=== PATIENT | male | born 1965 | race Caucasian/White ===

== ENCOUNTER 2016-09-21 18:54 | Emergency (ER) | payer OTHER ==
[2016-09-21 19:03] VITALS: RESP 20; TEMP 97.8
[2016-09-21] MEDS ORDERED: ORPHENADRINE 30 MG/ML 2 ML VIAL IM STA (19:16)
[2016-09-21] MEDS ORDERED: ONDANSETRON 4 MG ODT STARTER PACK 2 TAB BTL PO STA (19:16)
[2016-09-21] MEDS ORDERED: IPRATROPIUM-ALBUTEROL 3 ML NEB INHALATION STA (19:17)
[2016-09-21] MEDS ORDERED: ACETAMINOPHEN TAB 500 MG TAB PO STA (19:17)
--- NOTE | 2016-09-21 19:20 | ED ---
General Adult HPI - General Chief complaint: Back Pain/Injury Stated complaint: back pain, nausea, coughing Time Seen by Provider: 09/21/16 19:04 Source: patient, RN notes reviewed Mode of arrival: wheelchair Limitations: no limitations - History of Present Illness Initial comments: Patient is a 50-year-old male presenting to the emergency department with chief complaint of cough for 1 week, and 1 day of left-sided thoracic muscle spasm. Patient reports that is also felt somewhat nauseated today. He reports that he has not had any episodes of vomiting, and denies any abdominal pain. Patient reports is also had some sinus congestion earlier this week. He states that he is a smoker and has been diagnosed with COPD. Patient reports that over the past week has got cough is gone progressively worse and he is having productive green phlegm. He reports that he feels chills but denies any specific fever. He states he has not taken any Motrin or Tylenol for pain or fevers. He reports that his back pain is currently a 10 out of 10 and is worse with light pressure, he states is worse with movement as well. He denies any specific injury or trauma causes back pain. Patient denies any recent fever, chest pain , abdominal pain, nausea vomiting, numbness or tingling, dysuria or hematuria, constipation or diarrhea, headaches or visual changes, or any other current symptoms. - Related Data Home Medications Medication Instructions Recorded Confirmed Brimonidine Tartrate [Alphagan P 2 drops RIGHT EYE BID 09/21/16 09/21/16 0.2% Ophth Soln] Dorzolamide 2% [Trusopt 2%] 2 drops RIGHT EYE BID 09/21/16 09/21/16 Ibuprofen [Motrin] 400 mg PO Q6HR PRN 09/21/16 09/21/16 Lisinopril [Prinivil] 10 mg PO DAILY 09/21/16 09/21/16 Omeprazole 20 mg PO DAILY 09/21/16 09/21/16 Timolol 0.5% Ophth Soln [Timoptic 2 drop RIGHT EYE BID 09/21/16 09/21/16 0.5% Ophth Soln] Triamcinolone 0.1% Cream [Kenalog] 1 applic TOPICAL BID 09/21/16 09/21/16 hydrOXYzine HCL [Atarax] 10 mg PO DAILY PRN 09/21/16 09/21/16 Previous Rx's Medication Instructions Recorded Albuterol Inhaler [Ventolin Hfa 1 - 2 puff INHALATION Q6HR PRN #1 09/21/16 Inhaler] inhaler Azithromycin [Zithromax] 0 mg PO DIRECTED #6 tab 09/21/16 Cyclobenzaprine [Flexeril] 10 mg PO TID #15 tab 09/21/16 predniSONE 50 mg PO DAILY #5 tab 09/21/16 Allergies Allergy/AdvReac Type Severity Reaction Status Date / Time No Known Allergies Allergy Verified 09/21/16 19:27 Review of Systems ROS Statement: Those systems with pertinent positive or pertinent negative responses have been documented in the HPI. ROS Other: All systems not noted in ROS Statement are negative. Past Medical History Past Medical History: GERD/Reflux, Hypertension Additional Past Medical History / Comment(s): cataracts History of Any Multi-Drug Resistant Organisms: None Reported Past Surgical History: Orthopedic Surgery Additional Past Surgical History / Comment(s): cataract removal, rotator cuff Past Psychological History: No Psychological Hx Reported Smoking Status: Current every day smoker Past Alcohol Use History: Daily Past Drug Use History: None Reported General Exam - General Exam Comments Initial Comments: Patient is a pleasant 50-year-old male. He does appear to be in moderate discomfort due to back pain. Limitations: no limitations General appearance: alert, in no apparent distress Head exam: Present: atraumatic, normocephalic, normal inspection Eye exam: Present: normal appearance, PERRL, EOMI. Absent: scleral icterus, conjunctival injection, periorbital swelling ENT exam: Present: normal exam, normal oropharynx, mucous membranes moist, TM's normal bilaterally Neck exam: Present: normal inspection, full ROM. Absent: tenderness, meningismus, lymphadenopathy Respiratory exam: Present: wheezes (Mild bilateral wheezing), decreased breath sounds (Patient has decreased breath sounds bilaterally. ). Absent: normal lung sounds bilaterally, respiratory distress, rales, rhonchi, stridor Cardiovascular Exam: Present: regular rate, normal rhythm, normal heart sounds. Absent: systolic murmur, diastolic murmur, rubs, gallop, clicks GI/Abdominal exam: Present: soft, normal bowel sounds. Absent: distended, tenderness, guarding, rebound, rigid Extremities exam: Present: normal inspection, full ROM, normal capillary refill. Absent: tenderness, pedal edema, joint swelling, calf tenderness Back exam: Present: normal inspection Neurological exam: Present: alert, oriented X3, CN II-XII intact Psychiatric exam: Present: normal affect, normal mood Skin exam: Present: warm, dry, intact, normal color. Absent: rash Course Vital Signs 09/21/16 09/21/16 19:00 20:07 Temperature 97.8 F Pulse Rate 90 92 Respiratory 20 Rate Blood Pressure 185/86 O2 Sat by Pulse 97 Oximetry Medical Decision Making - Medical Decision Making Patient is a 70-year-old male who is a chronic smoker presenting the with chief complaint of 1 week of coughing and left-sided thoracic back spasm for the past day. Patient's blood pressure is elevated when he 185/86. Patient reports he is not taking his lisinopril this evening, patient reports he plans to take this as he gets home. He reports his back pain in the time 10. Patient states he is not taking any pain relievers including Motrin Tylenol today. Reports the cough is gone. Recently worsened suture green sputum. Patient's chest x-ray was reviewed. Chest x-ray shows no evidence of any acute cardiopulmonary process. Patient was given a DuoNeb treatment due to mild wheezing and decreased lung sounds. Patient reports mild improvement after the DuoNeb treatment. Thoracic spine x-ray was also reviewed and shows no acute process including spondylolisthesis or spondylolysis. The ribs are visualized and were unremarkable bilaterally. This was all read by Dr. godinez. Patient's influenza screen was also negative. Given the length of the cough and sputum start the patient on azithromycin, prednisone for the cough. Patient was also given an albuterol inhaler to use for cough and shortness of breath. Patient will also be discharged with a prescription for Flexeril for his back pain. I advised patient to do heat and ice over the back. I advised patient to follow- up with primary care provider in one to 2 days symptoms continue persist or to return to the [facility] if any alarming signs or symptoms occur. Return parameters discussed. Patient understands treatment plan will comply. - Lab Data Lab Results 09/21/16 Range/Units 19:27 Influenza Type A RNA Not Detected (Not Detectd) Influenza Type B (PCR) Not Detected (Not Detectd) - Radiology Data Radiology results: report reviewed Chest x-ray shows no evidence of any acute cardio primary process. No pneumonias or no pleural effusions, osseous structures are intact. Thoracic spine x-ray also shows no acute fracture dislocation in the thoracic spine. The ribs were visualized and showed no fractures. Vertebral disc height are preserved. All x-rays were reviewed by Dr. reis. Disposition Clinical Impression: Cough, Spasm of thoracic back muscle, Hypertension Disposition: HOME SELF-CARE Condition: Good Instructions: Muscle Spasm (ED), COPD (Chronic Obstructive Pulmonary Disease) ( ED), Acute Bronchitis (ED) Additional Instructions: Patient instructed to complete antibiotic and steroid prescriptions. Take muscle relaxers and apply heat to the back. Patient started take Motrin Tylenol for pain. Return to the [facility] if any alarming signs or symptoms occur. Patient started to follow-up with primary care provider within 1-2 days. Prescriptions: Albuterol Inhaler [Ventolin Hfa Inhaler] 1 - 2 puff INHALATION Q6HR PRN #1 inhaler PRN Reason: Shortness Of Breath Azithromycin [Zithromax] 0 mg PO DIRECTED #6 tab Cyclobenzaprine [Flexeril] 10 mg PO TID #15 tab predniSONE 50 mg PO DAILY #5 tab Referrals: Isidro Felipe MD [Primary Care Provider] - 1-2 days Time of Disposition: 20:13
--- NOTE | 2016-09-21 19:50 | XR ---
EXAMINATION TYPE: XR chest 2V DATE OF EXAM: 09/21/2016 7:41 PM COMPARISON: Prior chest x-ray December 03, 2012 HISTORY: Chest pain and cough since yesterday TECHNIQUE: Frontal and lateral views of the chest are obtained. FINDINGS: There is no focal air space opacity, pleural effusion, or pneumothorax seen. Underlying e mphysematous change is not excluded. The cardiac silhouette size is within normal limits. The osseo us structures are somewhat demineralized IMPRESSION: No acute cardiopulmonary process. No significant change from prior.
--- NOTE | 2016-09-21 19:51 | XR ---
EXAMINATION TYPE: XR thoracic spine complete DATE OF EXAM: 09/21/2016 7:41 PM CLINICAL HISTORY: Back pain. Cough. TECHNIQUE: Frontal, lateral, and swimmer's view of thoracic spine are obtained. COMPARISON: Chest x-ray December 03, 2012 FINDINGS: Thoracic spine show satisfactory alignment without evidence of acute fracture or dislocatio n. Vertebral body heights and disc space heights are preserved. No significant spurring is noted. Vi sualized ribs are unremarkable bilaterally. Visualized lungs are clear. IMPRESSION: No acute fracture or dislocation is seen in the thoracic spine.
[2016-09-21] MEDS ORDERED: cloNIDine HCL 0.1 MG TAB PO STA (20:35)
[2016-09-21 20:46] VITALS: BP 184/98; PULSE 80
== END 2016-09-21 20:47 | disposition home or self-care (01) ==
LOC: EC 18:54
DX: M62.830 Muscle spasm of back (principal); R05 Cough; I10 Essential (primary) hypertension; J44.9 Chronic obstructive pulmonary disease, unspecified; K21.9 Gastro-esophageal reflux disease without esophagitis; F17.200 Nicotine dependence, unspecified, uncomplicated; Z79.899 Other long term (current) drug therapy
CPT/HCPCS: 99284; 96372; 94640; 87502; 71020; 72072; J2360; S0119

== ENCOUNTER → 2016-10-21 | Outpatient (CLI) | payer OTHER ==
--- NOTE | 2016-10-21 08:34 | US ---
EXAMINATION TYPE: US abdomen complete DATE OF EXAM: 10/21/2016 8:15 AM COMPARISON: NONE CLINICAL HISTORY: R18.8 Ascites, R16.2 Hepatomegaly with splenomegaly. Patient on meds for HTN; smoke r; no distended abdomen noticed on US initial physical assessment EXAM MEASUREMENTS: Liver Length: 14.1 cm Gallbladder Wall: 0.1 cm CBD: 0.2 cm Spleen: 7.1 cm Right Kidney: 12.8 x 5..5 x 4.1 cm Left Kidney: 11.8 x 5.4 x 5.6 cm TECHNOLOGIST IMPRESSION: Pancreas: wnl Liver: wnl, size is wnl Gallbladder: wnl Evidence for sonographic Cruz's sign: no CBD: wnl Spleen: size is wnl, appearance is mildly coarse in texture Right Kidney: microcalcifications are noted scattered throughout Left Kidney: microcalcifications are noted scattered throughout; mid pole cortical cyst is noted = 1 .0 x 1.0 x 0.8cm Upper IVC: wnl Abd Aorta: intimal wall thickening is noted mid, distal, and into EMY vessels IMPRESSION: Multiple small nonobstructing renal calculi. Left renal cortical
[2016-10-21 08:47] LABS: Basophils % (A) 0 %; CH 34.6; CHCM 34.7; Eosinophils % (A) 0 %; HDW 2.16; HGB 13.2 gm/dL (13.0-17.5); Luc # (Auto) 0.19; Luc % (Auto) 3; Lymphocytes # (A) 1.3 k/uL (1.0-4.8); Lymphocytes % (A) 17 %; Mean Platelet Volume 6.2; Monocytes # (A) 0.6 k/uL (0-1.0); Monocytes % (A) 8 %; Neutrophils # (A) 5.5 k/uL (1.3-7.7); Neutrophils % (A) 73 %; RDW 13.5 % (11.5-15.5); WBC 7.6 k/uL (3.8-10.6); WBC (Perox) 8.02
[2016-10-21 08:53] LABS: INR 0.9 (<1.1); Prothrombin Time 9.5 sec (9.0-12.0)
[2016-10-21 09:19] LABS: ALT 34 U/L (21-72); AST 33 U/L (17-59); Alcohol <10 mg/dL; Alkaline Phosphatase 83 U/L (38-126); Anion Gap 12 mmol/L; Blood Urea Nitrogen 8 mg/dL (9-20); Calcium 10.1 mg/dL (8.4-10.2); Carbon Dioxide 28 mmol/L (22-30); Chloride 90 mmol/L (98-107); Cholesterol 218 mg/dL (<200); Creatine Kinase 63 U/L (55-170); Glucose 87 mg/dL (74-99); Magnesium 1.8 mg/dL (1.6-2.3); Non-African American GFR(MDRD) >60 (>60 ml/min/1.73 sqM); Phosphorous 4.1 mg/dL (2.5-4.5); Potassium 4.4 mmol/L (3.5-5.1); Sodium 130 mmol/L (137-145); Total Bilirubin 0.6 mg/dL (0.2-1.3); Total Protein 8.2 g/dL (6.3-8.2); Triglycerides 48 mg/dL (<150); Uric Acid 3.5 mg/dL (3.5-8.5)
[2016-10-21 10:06] LABS: Hepatitis C Virus IgG Index 0.04
[2016-10-21 10:25] LABS: Hepatitis C Virus IgG Ab Negative (Negative)
[2016-10-21 10:30] LABS: C Reactive Protein <5.0 mg/L (<10.0)
[2016-10-21 10:46] LABS: HDL Cholesterol 137 mg/dL (40-60)
[2016-10-21 12:23] LABS: Erythrocyte Sedimentation Rate 8 mm/hr (0-15)
[2016-10-21 13:18] LABS: Hemoglobin A1C 5.3 % (4.2-6.1)
== END | disposition home or self-care (01) ==
LOC: RADUSWWP 07:34
PROVIDERS: ATTEND Internal Medicine
DX: N20.0 Calculus of kidney (principal); D64.9 Anemia, unspecified; J44.9 Chronic obstructive pulmonary disease, unspecified; M10.9 Gout, unspecified; E78.5 Hyperlipidemia, unspecified; I10 Essential (primary) hypertension; K70.30 Alcoholic cirrhosis of liver without ascites
CPT/HCPCS: 76700; 80053; 80061; 80320; 82105; 82140; 82550; 83036; 83735; 84100; 84439; 84443; 84550; 85025; 85610; 85652; 86140; 86301; 86803

== ENCOUNTER → 2017-10-10 | Outpatient (CLI) | payer OTHER ==
[2017-10-10 08:56] LABS: Basophils % (A) 0 %; Eosinophils % (A) 0 %; Lymphocytes # (A) 1.2 k/uL (1.0-4.8); Lymphocytes % (A) 16 %; MCHC 34.2 g/dL (31.0-37.0); MCV 99.5 fL (80.0-100.0); Mean Platelet Volume 6.2; Monocytes # (A) 0.8 k/uL (0-1.0); Monocytes % (A) 11 %; Neutrophils # (A) 5.1 k/uL (1.3-7.7); Neutrophils % (A) 70 %; Platelet Count 372 k/uL (150-450); RBC 3.82 m/uL (4.30-5.90); RDW 12.9 % (11.5-15.5); WBC 7.4 k/uL (3.8-10.6)
[2017-10-10 10:10] LABS: ALT 25 U/L (21-72); AST 32 U/L (17-59); Albumin 4.6 g/dL (3.5-5.0); Alkaline Phosphatase 66 U/L (38-126); Anion Gap 10 mmol/L; Blood Urea Nitrogen 8 mg/dL (9-20); Calcium 10.1 mg/dL (8.4-10.2); Carbon Dioxide 28 mmol/L (22-30); Chloride 85 mmol/L (98-107); Cholesterol 192 mg/dL (<200); Glucose 88 mg/dL (74-99); HDL Cholesterol 90 mg/dL (40-60); LDL Cholesterol,Calculated 91 mg/dL (0-99); Potassium 5.3 mmol/L (3.5-5.1); Sodium 123 mmol/L (137-145); Total Bilirubin 0.5 mg/dL (0.2-1.3); Total Protein 7.8 g/dL (6.3-8.2); Triglycerides 55 mg/dL (<150)
[2017-10-10 10:37] LABS: Prostate Specific Antigen 0.44 ng/mL (0.00-4.00)
== END | disposition home or self-care (01) ==
LOC: LABWHC1 08:18
PROVIDERS: ATTEND Family Medicine
DX: I10 Essential (primary) hypertension (principal); Z13.21 Encounter for screening for nutritional disorder; Z12.5 Encounter for screening for malignant neoplasm of prostate
CPT/HCPCS: 36415; 80053; 80061; 82306; 84153; 84443; 85025

== ENCOUNTER → 2017-11-24 | Outpatient (CLI) | payer OTHER ==
--- NOTE | 2017-11-24 11:33 | XR ---
EXAMINATION TYPE: XR chest 2V DATE OF EXAM: 11/24/2017 COMPARISON: 09/21/2016 HISTORY: Shortness of breath and COPD TECHNIQUE: Frontal and lateral views of the chest are obtained. FINDINGS: There is no focal air space opacity, pleural effusion, or pneumothorax seen. Pulmonary hy perinflation and flattening of the diaphragms represents the patient's known underlying COPD. Hilar e nlargement is favored to represent underlying pulmonary artery hypertension in the setting of COPD. T he cardiac silhouette size is within normal limits. The osseous structures are intact. IMPRESSION: No acute cardiopulmonary process. Radiographic sequela city and findings favoring pulmon kendy arterial hypertension.
== END | disposition home or self-care (01) ==
LOC: RADXRMAIN 11:06
PROVIDERS: ATTEND Family Medicine
DX: E87.1 Hypo-osmolality and hyponatremia (principal)
CPT/HCPCS: 36415; 71046; 84295

== ENCOUNTER 2018-01-08 15:12 | Inpatient (IN) | payer OTHER ==
[2018-01-08] MEDS ORDERED: ONDANSETRON 4 MG/2 ML VIAL IVP STA (15:43)
[2018-01-08] MEDS ORDERED: LORazepam 2 MG/ML INJ IV STA (15:43)
[2018-01-08] MEDS ORDERED: SODIUM CHLORIDE 0.9% 1,000 ML IV STA ×2 (15:43→16:53)
[2018-01-08] MEDS ORDERED: KETOROLAC 30 MG/ML 1 ML VIAL IVP STA (15:44)
[2018-01-08] MEDS ORDERED: IPRATROPIUM-ALBUTEROL 3 ML NEB INHALATION STA (15:44)
[2018-01-08] MEDS ORDERED: methylPREDNISolone SOD SUCCI 125 MG/2 ML VIAL IV STA (15:44)
[2018-01-08 16:04] LABS: Basophils % (A) 0 %; Eosinophils # (A) 0.2 k/uL (0-0.7); Eosinophils % (A) 2 %; HCT 39.8 % (39.0-53.0); HGB 13.7 gm/dL (13.0-17.5); Lymphocytes # (A) 0.5 k/uL (1.0-4.8); Lymphocytes % (A) 6 %; MCH 34.2 pg (25.0-35.0); MCHC 34.5 g/dL (31.0-37.0); MCV 98.9 fL (80.0-100.0); Mean Platelet Volume 6.6; Monocytes # (A) 0.5 k/uL (0-1.0); Monocytes % (A) 6 %; Neutrophils # (A) 6.6 k/uL (1.3-7.7); Neutrophils % (A) 85 %; Platelet Count 250 k/uL (150-450); RBC 4.02 m/uL (4.30-5.90); RDW 12.3 % (11.5-15.5); WBC 7.8 k/uL (3.8-10.6)
--- NOTE | 2018-01-08 16:13 | XR ---
EXAMINATION TYPE: XR chest 2V DATE OF EXAM: 01/08/2018 COMPARISON: NONE HISTORY: Cough, congestion, and chest pain TECHNIQUE: Frontal and lateral views of the chest are obtained. FINDINGS: There is no focal air space opacity, pleural effusion, or pneumothorax seen. The cardiac silhouette size is within normal limits. The osseous structures are intact. Chronic deformity of th e right midclavicle is seen from prior fracture. Mild osseous demineralization is noted. IMPRESSION: No acute cardiopulmonary process.
[2018-01-08 16:14] LABS: ALT 50 U/L (21-72); AST 76 U/L (17-59); Albumin 4.2 g/dL (3.5-5.0); Alkaline Phosphatase 80 U/L (38-126); Anion Gap 10 mmol/L; Blood Urea Nitrogen 7 mg/dL (9-20); Calcium 9.3 mg/dL (8.4-10.2); Carbon Dioxide 25 mmol/L (22-30); Chloride 88 mmol/L (98-107); Glucose 118 mg/dL (74-99); Magnesium 1.5 mg/dL (1.6-2.3); Phosphorus 2.3 mg/dL (2.5-4.5); Potassium 3.6 mmol/L (3.5-5.1); Sodium 123 mmol/L (137-145); Total Bilirubin 0.5 mg/dL (0.2-1.3); Total Protein 7.1 g/dL (6.3-8.2)
[2018-01-08 16:18] LABS: Partial Thromboplastin Time 26.1 sec (22.0-30.0); Prothrombin Time 9.6 sec (9.0-12.0)
[2018-01-08 16:21] LABS: D-Dimer 1.36 mg/L FEU (<0.60)
[2018-01-08 16:41] LABS: Creatine Kinase 258 U/L (55-170)
[2018-01-08 16:49] LABS: Creatine Kinase MB 0.7 ng/mL (0.0-2.4)
[2018-01-08 16:54] LABS: Troponin I <0.012 ng/mL (0.000-0.034)
[2018-01-08] MEDS ORDERED: MAGNESIUM OXIDE 400 MG TAB PO STA (16:54)
[2018-01-08] MEDS ORDERED: RX INFO: IV CONTRAST WAS GIVEN 1 EACH MISC MISCELLANE PRN (17:39)
--- NOTE | 2018-01-08 18:35 | US ---
EXAMINATION TYPE: US venous doppler duplex LE BI DATE OF EXAM: 01/08/2018 5:39 PM COMPARISON: NONE CLINICAL HISTORY: Pain. SIDE PERFORMED: Bilateral TECHNIQUE: The lower extremity deep venous system is examined utilizing real time linear array sonog rosemary with graded compression, doppler sonography and color-flow sonography. VESSELS IMAGED: External Iliac Vein (EIV) Common Femoral Vein Deep Femoral Vein Greater Saphenous Vein * Femoral Vein Popliteal Vein Small Saphenous Vein * Proximal Calf Veins (* superficial vessels) Right Leg: Negative for DVT Left Leg: Negative for DVT IMPRESSION: Negative exam. No evidence of deep venous thrombosis in both legs.
--- NOTE | 2018-01-08 18:43 | ED ---
General Adult HPI - General Chief complaint: Shortness of Breath Stated complaint: KULDIP Time Seen by Provider: 01/08/18 15:28 Source: patient, RN notes reviewed, old records reviewed Mode of arrival: ambulatory Limitations: no limitations - History of Present Illness Initial comments: 52-year-old male the ER for evaluation. The patient resents for evaluation regarding weakness, decreased ability to walk, persistent nausea vomiting not feeling well. Patient has no recent travel history or sick contacts no chest pain or shortness of breath, takes no specific medications. Patient does admit to daily alcohol intake. Patient does with decreased appetite but mainly consistent and persistent nausea vomiting no pain - Related Data Home Medications Medication Instructions Recorded Confirmed Amoxicillin 500 mg PO TID 01/08/18 01/08/18 Cetirizine HCl [Zyrtec] 10 mg PO DAILY 01/08/18 01/08/18 Citalopram Hydrobromide 20 mg PO DAILY 01/08/18 01/08/18 [Citalopram HBr] Ergocalciferol [Vitamin D2] 50,000 unit PO Q30D 01/08/18 01/08/18 Ibuprofen [Motrin] 400 mg PO TID PRN 01/08/18 01/08/18 Latanoprost Ophth [Xalatan 0.005%] 1 drops RIGHT EYE HS 01/08/18 01/08/18 Losartan Potassium 50 mg PO DAILY 01/08/18 01/08/18 Melatonin 3 mg PO HS 01/08/18 01/08/18 Nicotine [Nicotrol] 1 puff INHALATION DIRECTED 01/08/18 01/08/18 Ranitidine HCl 150 mg PO BID 01/08/18 01/08/18 hydrOXYzine HCL 25 mg PO HS 01/08/18 01/08/18 Allergies Allergy/AdvReac Type Severity Reaction Status Date / Time No Known Allergies Allergy Verified 01/08/18 15:15 Review of Systems ROS Statement: Those systems with pertinent positive or pertinent negative responses have been documented in the HPI. ROS Other: All systems not noted in ROS Statement are negative. Past Medical History Past Medical History: GERD/Reflux, Hypertension Additional Past Medical History / Comment(s): cataracts History of Any Multi-Drug Resistant Organisms: None Reported Past Surgical History: Orthopedic Surgery Additional Past Surgical History / Comment(s): cataract removal, rotator cuff Past Psychological History: No Psychological Hx Reported Smoking Status: Current every day smoker Past Alcohol Use History: Daily Past Drug Use History: None Reported General Exam Limitations: no limitations General appearance: alert, in no apparent distress, lethargic Head exam: Present: atraumatic, normocephalic, normal inspection Eye exam: Present: normal appearance, PERRL, EOMI. Absent: scleral icterus, conjunctival injection, periorbital swelling ENT exam: Present: normal exam, mucous membranes moist Neck exam: Present: normal inspection. Absent: tenderness, meningismus, lymphadenopathy Respiratory exam: Present: normal lung sounds bilaterally. Absent: respiratory distress, wheezes, rales, rhonchi, stridor Cardiovascular Exam: Present: regular rate, normal rhythm, normal heart sounds. Absent: systolic murmur, diastolic murmur, rubs, gallop, clicks GI/Abdominal exam: Present: soft, normal bowel sounds. Absent: distended, tenderness, guarding, rebound, rigid Extremities exam: Present: normal inspection, full ROM, normal capillary refill. Absent: tenderness, pedal edema, joint swelling, calf tenderness Back exam: Present: normal inspection Neurological exam: Present: alert, oriented X3, CN II-XII intact Psychiatric exam: Present: normal affect, normal mood Skin exam: Present: warm, dry, intact, normal color. Absent: rash Course Vital Signs 01/08/18 01/08/18 01/08/18 15:14 16:08 17:27 Temperature 98.0 F Pulse Rate 112 H 98 78 Respiratory 20 20 16 Rate Blood Pressure 138/74 128/74 O2 Sat by Pulse 96 98 Oximetry 01/08/18 01/08/18 17:38 18:41 Temperature Pulse Rate 80 99 Respiratory 20 Rate Blood Pressure 118/65 O2 Sat by Pulse 96 Oximetry - Reevaluation(s) Reevaluation #1: Patient has multiple elevated lab values including d-dimer we will pertain ultrasound and CT of chest Patient is having improvement with IV hydration and symptom control EKG Findings - EKG Comments: EKG Findings:: Shows sinus tachycardia rate of 103, [place] 1:30, QRS 88, QTC 445 Medical Decision Making - Medical Decision Making 52 male the ER for evaluation, patient resents for nausea vomiting persistent, hyponatremia beer per fidelina, multiple left foot and about his. Patient will be admitted for pending DVTs, electrolyte replacement of and resuscitation - Lab Data Result diagrams: 01/08/18 15:55 01/08/18 15:55 Lab Results 01/08/18 01/08/18 01/08/18 Range/Units 15:55 15:55 15:55 WBC 7.8 (3.8-10.6) k/uL RBC 4.02 L (4.30-5.90) m/uL Hgb 13.7 (13.0-17.5) gm/dL Hct 39.8 (39.0-53.0) % MCV 98.9 (80.0-100.0) fL MCH 34.2 (25.0-35.0) pg MCHC 34.5 (31.0-37.0) g/dL RDW 12.3 (11.5-15.5) % Plt Count 250 (150-450) k/uL Neutrophils % 85 % Lymphocytes % 6 % Monocytes % 6 % Eosinophils % 2 % Basophils % 0 % Neutrophils # 6.6 (1.3-7.7) k/uL Lymphocytes # 0.5 L (1.0-4.8) k/uL Monocytes # 0.5 (0-1.0) k/uL Eosinophils # 0.2 (0-0.7) k/uL Basophils # 0.0 (0-0.2) k/uL PT (9.0-12.0) sec INR (<1.2) APTT (22.0-30.0) sec D-Dimer (<0.60) mg/L FEU Sodium 123 L (137-145) mmol/L Potassium 3.6 (3.5-5.1) mmol/L Chloride 88 L (98-107) mmol/L Carbon Dioxide 25 (22-30) mmol/L Anion Gap 10 mmol/L BUN 7 L (9-20) mg/dL Creatinine 0.73 (0.66-1.25) mg/dL Est GFR (CKD-EPI)AfAm >90 (>60 ml/min/1.73 sqM) Est GFR (CKD-EPI)NonAf >90 (>60 ml/min/1.73 sqM) Glucose 118 H (74-99) mg/dL Calcium 9.3 (8.4-10.2) mg/dL Phosphorus 2.3 L (2.5-4.5) mg/dL Magnesium 1.5 L (1.6-2.3) mg/dL Total Bilirubin 0.5 (0.2-1.3) mg/dL AST 76 H (17-59) U/L ALT 50 (21-72) U/L Alkaline Phosphatase 80 (38-126) U/L Total Creatine Kinase 258 H (55-170) U/L CK-MB (CK-2) 0.7 (0.0-2.4) ng/mL CK-MB (CK-2) Rel Index 0.3 Troponin I <0.012 (0.000-0.034) ng/mL NT-Pro-B Natriuret Pep pg/mL Total Protein 7.1 (6.3-8.2) g/dL Albumin 4.2 (3.5-5.0) g/dL 01/08/18 01/08/18 Range/Units 15:55 15:55 WBC (3.8-10.6) k/uL RBC (4.30-5.90) m/uL Hgb (13.0-17.5) gm/dL Hct (39.0-53.0) % MCV (80.0-100.0) fL MCH (25.0-35.0) pg MCHC (31.0-37.0) g/dL RDW (11.5-15.5) % Plt Count (150-450) k/uL Neutrophils % % Lymphocytes % % Monocytes % % Eosinophils % % Basophils % % Neutrophils # (1.3-7.7) k/uL Lymphocytes # (1.0-4.8) k/uL Monocytes # (0-1.0) k/uL Eosinophils # (0-0.7) k/uL Basophils # (0-0.2) k/uL PT 9.6 (9.0-12.0) sec INR 1.0 (<1.2) APTT 26.1 (22.0-30.0) sec D-Dimer 1.36 H (<0.60) mg/L FEU Sodium (137-145) mmol/L Potassium (3.5-5.1) mmol/L Chloride (98-107) mmol/L Carbon Dioxide (22-30) mmol/L Anion Gap mmol/L BUN (9-20) mg/dL Creatinine (0.66-1.25) mg/dL Est GFR (CKD-EPI)AfAm (>60 ml/min/1.73 sqM) Est GFR (CKD-EPI)NonAf (>60 ml/min/1.73 sqM) Glucose (74-99) mg/dL Calcium (8.4-10.2) mg/dL Phosphorus (2.5-4.5) mg/dL Magnesium (1.6-2.3) mg/dL Total Bilirubin (0.2-1.3) mg/dL AST (17-59) U/L ALT (21-72) U/L Alkaline Phosphatase (38-126) U/L Total Creatine Kinase (55-170) U/L CK-MB (CK-2) (0.0-2.4) ng/mL CK-MB (CK-2) Rel Index Troponin I (0.000-0.034) ng/mL NT-Pro-B Natriuret Pep 102 pg/mL Total Protein (6.3-8.2) g/dL Albumin (3.5-5.0) g/dL - Radiology Data Radiology results: report reviewed (Ultrasound bilateral lower extremities are negative, CT chest negative), image reviewed Disposition Clinical Impression: Hyponatremia, Malnutrition, Alcohol abuse, Alcohol withdrawal Disposition: ADMITTED IP TO THIS HOSP Condition: Fair Is patient prescribed a controlled substance at d/c from ED?: No
[2018-01-08] MEDS: MAGNESIUM SULFATE-D5W PMX 1 GM in DEXTROSE/WATER 1 100ML.BAG IVPB SCH ×2 (18:45→19:49)
--- NOTE | 2018-01-08 18:53 | CT ---
EXAMINATION TYPE: CT angio chest DATE OF EXAM: 01/08/2018 6:46 PM COMPARISON: NONE HISTORY: Chest pain. CT DLP: 154.9 mGycm Automated exposure control for dose reduction was used. CONTRAST: CTA scan of the thorax is performed with IV Contrast, patient injected with 69ml mL of Isovue 370, pu lmonary embolism protocol. There are 3-D post processed images.. FINDINGS: There is diffuse pulmonary emphysema. There is no evidence of a pulmonary mass. Thoracic aorta shows no evidence of aneurysm or dissection. There is no mediastinal adenopathy. There are no hilar masses. There are bilateral bronchial lymph nodes that measure up to 1.4 cm. I see no filling defects in the pulmonary arteries. There is no pleural effusion. There is minimal lemons bpleural reticular interstitial density in the right lower lobe. IMPRESSION: NO EVIDENCE OF PULMONARY EMBOLISM. EMPHYSEMA. MILD FIBROTIC CHANGES AT THE RIGHT LOWER LOBE SUBPLEURAL REGION. THERE ARE A FEW BILATERAL BRONCHIAL LYMPH NODES PROBABLY RELATED TO INFLAMMATORY DISEASE.
[2018-01-08] MEDS ORDERED: LORazepam 2 MG/ML INJ IV PRN ×3 (19:21)
[2018-01-08] MEDS ORDERED: SODIUM CHLORIDE 0.9% 1,000 ML IV ONE (19:21)
[2018-01-08] MEDS ORDERED: ONDANSETRON 4 MG/2 ML VIAL IVP PRN (19:21)
[2018-01-08] MEDS ORDERED: THIAMINE 100 MG/ML 2 ML VIAL IM STA (19:21)
[2018-01-08 21:42] VITALS: BMI 21.0
[2018-01-08] MEDS: THIAMINE 100 MG TAB PO SCH (22:03)
[2018-01-08] MEDS: hydrOXYzine HCL 25 MG TAB PO SCH (22:04)
[2018-01-08] MEDS: MELATONIN 3 MG TABLET PO SCH (22:04)
[2018-01-08] MEDS: LATANOPROST 0.005% OPHTH DROPS 2.5 ML BTL RIGHT EYE SCH (22:05)
[2018-01-09] MEDS: DIAZEPAM 5 MG/ML 2 ML INJ IVP SCH ×5 (01:18→22:00)
[2018-01-09] MEDS: PANTOPRAZOLE 40 MG/10 ML VIAL IVP SCH (07:53)
[2018-01-09] MEDS: CITALOPRAM HYDROBROMIDE 20 MG TAB PO SCH (07:53)
[2018-01-09] MEDS: LOSARTAN 50 MG TAB PO SCH (07:53)
[2018-01-09] MEDS: ENOXAPARIN 40 MG/0.4 ML SYRINGE SQ SCH (07:53)
[2018-01-09] MEDS: LORATADINE 10 MG TAB PO SCH (07:53)
[2018-01-09] MEDS ORDERED: FAMOTIDINE 20 MG TAB PO SCH (09:00)
[2018-01-09] MEDS: NICOTINE 21MG/24HR PATCH TRANSDERM SCH (11:12)
[2018-01-09] MEDS: THIAMINE 100 MG TAB PO SCH ×2 (11:53→15:14)
[2018-01-09] MEDS ORDERED: DIAZEPAM 5 MG/ML (10 ML MDV) IVP ONE (12:00)
[2018-01-09] MEDS ORDERED: RX INFO: IV CONTRAST WAS GIVEN 1 EACH MISC MISCELLANE PRN (12:54)
[2018-01-09 13:34] LABS: Anion Gap 10 mmol/L; Blood Urea Nitrogen 9 mg/dL (9-20); Calcium 8.9 mg/dL (8.4-10.2); Carbon Dioxide 20 mmol/L (22-30); Chloride 101 mmol/L (98-107); Glucose 100 mg/dL (74-99); Sodium 131 mmol/L (137-145)
[2018-01-09] MEDS: cefTRIAXone IN SWFI 1,000 MG/10 ML SYRINGE IVP SCH (14:05)
[2018-01-09] MEDS: SODIUM CHLORIDE 0.9% 1,000 ML IV SCH (15:14)
--- NOTE | 2018-01-09 15:18 | P.HPIM ---
History of Present Illness H&P Date: 01/09/18 Chief Complaint: Cough, diarrhea This is a 52-year-old male patient of Dr. Britton with a past medical history for gastroesophageal reflux disease, hypertension, alcohol abuse. Patient drinks a 6 pack per day for at least 35 years. His last alcohol intake was 3 days ago. He denies having withdrawal symptoms or seizure activity in the past He states he came into the hospital because of coughing he thought he had pneumonia. Patient started having vomiting and chest pain on Friday evening according to his mother. He denies any coffee ground color or blood in the emesis. He has also had diarrhea 2-3 times per day that is a watery consistency and abdominal ache. He came into [facility] emergency center for evaluation. He also had complaints of decreased ability to walk and generalized weakness. EKG was sinus tachycardia, sodium 123, chloride 88, potassium 3.6, creatinine 0.73, blood sugar 118. Troponin was negative. D-dimer was 1.36 and patient underwent a CTA of the chest that was negative for pulmonary embolism. Emphysema. Mild fibrotic changes at the right lower lobe. Pleural region. Few bilateral bronchial lymph nodes probably related to inflammatory disease. Ultrasound of the bilateral lower extremities negative for DVT. Patient was started on IV fluids, thiamine, Protonix and Zofran and admitted to the [facility] floor. Review of Systems All systems: negative Constitutional: Reports fatigue, Reports weakness, Denies chills, Denies fever, Denies poor appetite Eyes: denies blurred vision, denies pain Ears, nose, mouth and throat: Denies headache, Denies sore throat Cardiovascular: Denies chest pain, Denies edema, Denies leg edema, Denies shortness of breath Respiratory: Denies cough Gastrointestinal: Reports abdominal pain, Reports diarrhea, Reports nausea, Reports vomiting, Denies hematemesis, Denies hematochezia, Denies melena Genitourinary: Denies dysuria Musculoskeletal: Denies myalgias Integumentary: Denies pruritus, Denies rash Neurological: Denies numbness, Denies weakness Psychiatric: Denies anxiety, Denies depression Endocrine: Denies fatigue, Denies weight change Past Medical History Past Medical History: GERD/Reflux, Hypertension Additional Past Medical History / Comment(s): cataracts History of Any Multi-Drug Resistant Organisms: None Reported Past Surgical History: Orthopedic Surgery Additional Past Surgical History / Comment(s): cataract removal, rotator cuff Past Psychological History: No Psychological Hx Reported Smoking Status: Current every day smoker Past Alcohol Use History: Daily Additional Past Alcohol Use History / Comment(s): Patient is a smoker one pack per day for at least 35 years. He lives at home with his mother. He is . He has history of alcohol abuse drinking 6 pack of beer per day for at least 35 years. Past Drug Use History: None Reported - Past Family History Mother Additional Family Medical History / Comment(s): Mother is alive with history of hypertension. Father Additional Family Medical History / Comment(s): Father has history of dementia. Daughter(s) Additional Family Medical History / Comment(s): Patient has one daughter with no major medical problems. Medications and Allergies Home Medications Medication Instructions Recorded Confirmed Type Amoxicillin 500 mg PO TID 01/08/18 01/08/18 History Cetirizine HCl [Zyrtec] 10 mg PO DAILY 01/08/18 01/08/18 History Citalopram Hydrobromide 20 mg PO DAILY 01/08/18 01/08/18 History [Citalopram HBr] Ergocalciferol [Vitamin D2] 50,000 unit PO Q30D 01/08/18 01/08/18 History Ibuprofen [Motrin] 400 mg PO TID PRN 01/08/18 01/08/18 History Latanoprost Ophth [Xalatan 0.005%] 1 drops RIGHT EYE HS 01/08/18 01/08/18 History Losartan Potassium 50 mg PO DAILY 01/08/18 01/08/18 History Melatonin 3 mg PO HS 01/08/18 01/08/18 History Nicotine [Nicotrol] 1 puff INHALATION DIRECTED 01/08/18 01/08/18 History Ranitidine HCl 150 mg PO BID 01/08/18 01/08/18 History hydrOXYzine HCL 25 mg PO HS 01/08/18 01/08/18 History Allergies Allergy/AdvReac Type Severity Reaction Status Date / Time No Known Allergies Allergy Verified 01/08/18 15:15 Physical Exam Vitals: Vital Signs Temp Pulse Pulse Resp BP BP Pulse Ox 01/09/18 07:00 96.8 F L 01/08/18 22:55 97.0 F L 97 17 111/71 95 01/08/18 20:57 97.2 F L 83 18 108/64 95 01/08/18 18:41 99 20 118/65 96 01/08/18 17:38 80 01/08/18 17:27 78 16 01/08/18 16:08 98 20 128/74 98 01/08/18 15:14 98.0 F 112 H 20 138/74 96 Intake and Output 01/08/18 01/09/18 01/09/18 22:59 06:59 14:59 Other: Voiding Method Toilet # Voids 2 # Bowel Movements 1 1 Weight 61 kg Gen: This is a thin 52-year-old male. He is sitting up in bed and appears to be comfortable and in no acute distress. HEENT: Head is atraumatic, normocephalic. Pupils equal, round. Sclerae is anicteric. NECK: Supple. No JVD. No lymphadenopathy. No thyromegaly. LUNGS: Clear to auscultation. No wheezes or rhonchi. No intercostal retractions. HEART: Regular rate and rhythm. No murmur. ABDOMEN: Soft. Bowel sounds are present. No masses. No tenderness. EXTREMITIES: No pedal edema. No calf tenderness. NEUROLOGICAL: Patient is awake, alert and oriented x3. Cranial nerves 2 through 12 are grossly intact. Results CBC & Chem 7: 01/08/18 15:55 01/09/18 13:09 Labs: Abnormal Lab Results - Last 24 Hours (Table) 01/08/18 01/08/18 01/08/18 Range/Units 15:55 15:55 15:55 RBC 4.02 L (4.30-5.90) m/uL Lymphocytes # 0.5 L (1.0-4.8) k/uL D-Dimer (<0.60) mg/L FEU Sodium 123 L (137-145) mmol/L Chloride 88 L (98-107) mmol/L BUN 7 L (9-20) mg/dL Glucose 118 H (74-99) mg/dL Phosphorus 2.3 L (2.5-4.5) mg/dL Magnesium 1.5 L (1.6-2.3) mg/dL AST 76 H (17-59) U/L Total Creatine Kinase 258 H (55-170) U/L 01/08/18 Range/Units 15:55 RBC (4.30-5.90) m/uL Lymphocytes # (1.0-4.8) k/uL D-Dimer 1.36 H (<0.60) mg/L FEU Sodium (137-145) mmol/L Chloride (98-107) mmol/L BUN (9-20) mg/dL Glucose (74-99) mg/dL Phosphorus (2.5-4.5) mg/dL Magnesium (1.6-2.3) mg/dL AST (17-59) U/L Total Creatine Kinase (55-170) U/L Thrombosis Risk Factor Assmnt - DVT/VTE Prophylaxis DVT/VTE Prophylaxis: Pharmacologic Prophylaxis ordered - Choose All That Apply Each Factor Represents 1 point: Age 41-60 years Other Risk Factors: No Thrombosis Risk Factor Assessment Total Risk Factor Score: 1 Thrombosis Risk Factor Assessment Level: Low Risk Assessment and Plan Plan: 1. Generalized weakness multifactorial secondary to hyponatremia, malnutrition and alcohol abuse, possible pneumonia and gastroenteritis. Patient started on ceftriaxone. 2. Hyponatremia. Patient will begin IV fluids 0.9 normal saline. Recheck sodium in the morning. 3. Malnutrition and alcohol abuse. Continue Ativan per protocol, thiamine, consult with social work for substance abuse referrals. 4. Possible pneumonia. Patient will be started on Rocephin 1 g daily. 5. Gastroenteritis. CAT scan of the abdomen and pelvis with contrast ordered. Zofran as needed for nausea. Continue Protonix. Stool to be checked for C. difficile toxin. 6. Hypertension. Continue losartan 50 mg daily. 7. Tobacco use and dependence. Continue nicotine patch. 8. GI prophylaxis. Protonix. 9. DVT prophylaxis. Lovenox. Patient will be admitted to the hospital for a minimum of 2 night stay. Discharge plan: Return home Impression and plan of care have been directed as dictated by the signing physician. Tran Yao nurse practitioner acting as scribe for signing physician.
[2018-01-09] MEDS: IBUPROFEN 400 MG TAB PO PRN (17:19)
[2018-01-09] MEDS: IOPAMIDOL-300 CONTRAST 30 ML VIAL (ORAL USE) PO PRN ×2 (17:20→18:13)
--- NOTE | 2018-01-09 18:55 | XR ---
EXAMINATION TYPE: XR chest 2V DATE OF EXAM: 01/09/2018 COMPARISON: 01/08/2018 HISTORY: Pleural effusion TECHNIQUE: Frontal and lateral views of the chest are obtained. FINDINGS: Heart and mediastinum are normal. Costophrenic angles are clear. There is some coarsening of interstitial markings in the left lower lobe. IMPRESSION: Mild interstitial left lower lobe infiltrate. No definite pleural effusion seen. Normal heart. No significant change compared to yesterday.
--- NOTE | 2018-01-09 19:12 | CT ---
EXAMINATION TYPE: CT abdomen pelvis w con DATE OF EXAM: 01/09/2018 COMPARISON: NONE HISTORY: Diarrhea CT DLP: 885 mGycm Automated exposure control for dose reduction was used. TECHNIQUE: Helical acquisition of images was performed from the lung bases through the pelvis. CONTRAST: Performed with Oral Contrast and with IV Contrast, patient injected with 100 mL of Isovue 300. FINDINGS: There is some interstitial reticular infiltrate in the right middle lobe. There is no pleural effusio n. There is no pericardial effusion. Heart size is normal. Liver and spleen appear normal. Bile ducts are not dilated. There is no pancreatic mass. Gallbladder appears normal. There is no adrenal mass. Kidneys show satisfactory contrast opacification. There is no hydronephrosi s. There are small less than 1 cm left renal cortical cysts. There is no hydronephrosis. Abdominal ao rta is atheromatous. There is no retroperitoneal adenopathy. There is no ascites. Ureters are not dil ated. There is mild bilateral perinephric stranding but no sign of renal obstruction or renal inflamm atory process. Bladder distends smoothly. There is no evidence of a pelvic mass. There is old contrast down to the r ectum. I see no intestinal wall thickening. There are no dilated loops. There is no evidence of a bow el obstruction. There is no sign of a hernia. Appendix is not definitely seen. There is no sign of ap pendicitis. The bony structures are intact. IMPRESSION: MINIMAL RIGHT MIDDLE LOBE INFILTRATE. NEGATIVE CT SCAN OF THE ABDOMEN AND PELVIS. Atherosclerotic vascular disease.
[2018-01-09 21:03] LABS: Appearance,Urine Clear (Clear); Bilirubin,Urine Negative (Negative); Blood,Urine Negative (Negative); Color,Urine Colorless; Glucose,Urine (UA) Negative (Negative); Ketones,Urine Negative (Negative); Leukocyte Esterase,Urine Negative (Negative); Nitrite,Urine Negative (Negative); Protein,Urine Negative (Negative); Urobilinogen,Urine <2.0 mg/dL (<2.0)
[2018-01-09] MEDS: MELATONIN 3 MG TABLET PO SCH (22:01)
[2018-01-09] MEDS: LATANOPROST 0.005% OPHTH DROPS 2.5 ML BTL RIGHT EYE SCH (22:01)
[2018-01-09] MEDS: hydrOXYzine HCL 25 MG TAB PO SCH (22:01)
[2018-01-09] MEDS: IPRATROPIUM-ALBUTEROL 3 ML NEB INHALATION PRN (23:47)
[2018-01-10] MEDS: DIAZEPAM 5 MG/ML 2 ML INJ IVP SCH ×2 (04:32)
[2018-01-10] MEDS: IPRATROPIUM-ALBUTEROL 3 ML NEB INHALATION PRN ×4 (04:33→18:52)
[2018-01-10] MEDS: SODIUM CHLORIDE 0.9% 1,000 ML IV SCH ×2 (05:45→18:02)
[2018-01-10] MEDS: ENOXAPARIN 40 MG/0.4 ML SYRINGE SQ SCH (08:47)
[2018-01-10] MEDS: cefTRIAXone IN SWFI 1,000 MG/10 ML SYRINGE IVP SCH (08:47)
[2018-01-10] MEDS: CITALOPRAM HYDROBROMIDE 20 MG TAB PO SCH (08:47)
[2018-01-10] MEDS: LORATADINE 10 MG TAB PO SCH (08:48)
[2018-01-10] MEDS: PANTOPRAZOLE 40 MG/10 ML VIAL IVP SCH (08:48)
[2018-01-10] MEDS: LOSARTAN 50 MG TAB PO SCH (08:48)
[2018-01-10] MEDS: NICOTINE 21MG/24HR PATCH TRANSDERM SCH (08:48)
[2018-01-10 09:21] LABS: Anion Gap 12 mmol/L; Blood Urea Nitrogen 5 mg/dL (9-20); Calcium 8.6 mg/dL (8.4-10.2); Carbon Dioxide 24 mmol/L (22-30); Chloride 96 mmol/L (98-107); Glucose 129 mg/dL (74-99); Potassium 3.4 mmol/L (3.5-5.1); Sodium 132 mmol/L (137-145)
[2018-01-10] MEDS: cloNIDine HCL 0.1 MG TAB PO SCH ×2 (10:49→20:54)
[2018-01-10] MEDS: FOLIC ACID 1 MG TAB PO SCH (10:49)
[2018-01-10] MEDS: MULTIVITAMINS, THERA 1 EACH TAB PO SCH (10:49)
[2018-01-10] MEDS: LEVOFLOXACIN 500MG-D5W PMX 500 MG in DEXTROSE/WATER 1 100ML.BAG IVPB SCH (10:49)
[2018-01-10] MEDS: THIAMINE 100 MG TAB PO SCH ×2 (10:52→17:08)
--- NOTE | 2018-01-10 11:58 | P.PN ---
Subjective Progress Note Date: 01/10/18 This is a 52-year-old male patient of Dr. Britton with a past medical history for gastroesophageal reflux disease, hypertension, alcohol abuse. Patient drinks a 6 pack per day for at least 35 years. His last alcohol intake was 3 days ago. He denies having withdrawal symptoms or seizure activity in the past He states he came into the hospital because of coughing he thought he had pneumonia. Patient started having vomiting and chest pain on Friday evening according to his mother. He denies any coffee ground color or blood in the emesis. He has also had diarrhea 2-3 times per day that is a watery consistency and abdominal ache. He came into [facility] emergency center for evaluation. He also had complaints of decreased ability to walk and generalized weakness. EKG was sinus tachycardia, sodium 123, chloride 88, potassium 3.6, creatinine 0.73, blood sugar 118. Troponin was negative. D-dimer was 1.36 and patient underwent a CTA of the chest that was negative for pulmonary embolism. Emphysema. Mild fibrotic changes at the right lower lobe. Pleural region. Few bilateral bronchial lymph nodes probably related to inflammatory disease. Ultrasound of the bilateral lower extremities negative for DVT. Patient was started on IV fluids, thiamine, Protonix and Zofran [facility]. 01/10: Patient appears to be more jittery today, he stated he has not had a drink since he came in, we will start clonidine 0.1 mg orally twice every day, and folic acid 1 mg orally once every day, and multivitamin once a day, discontinue diazepam, continue with CIWA protocol, switch Rocephin to Levaquin. Objective - Vital Signs Vital signs: Vital Signs Temp 97.9 F 01/10/18 05:53 Pulse 77 01/10/18 07:26 Resp 22 01/10/18 05:53 BP 150/75 01/10/18 05:53 Pulse Ox 92 L 01/10/18 05:53 Intake & Output 01/09/18 01/10/18 01/10/18 18:59 06:59 18:59 Other: Voiding Method Toilet Toilet # Voids 2 4 # Bowel Movements 2 2 - Constitutional General appearance: Present: average body habitus, mild distress - EENT Eyes: Present: anicteric sclerae, EOMI, PERRLA, normal appearance. Absent: ptosis, scleral icterus ENT: Present: hearing grossly normal, NA/AT, normal oropharynx Ears: bilateral: normal - Neck Neck: Present: normal ROM. Absent: lymphadenopathy, rigidity, stridor, thyromegaly Carotids: bilateral: upstroke normal Thyroid: bilateral: normal size - Respiratory Respiratory: bilateral: diminished, rhonchi, wheezing, prolonged expiration, negative: dullness, rales - Cardiovascular Rhythm: regular Heart sounds: normal: S1, S2 - Gastrointestinal General gastrointestinal: Present: normal bowel sounds, soft. Absent: splenomegaly, tenderness - Integumentary Integumentary: Present: normal, normal turgor - Musculoskeletal Musculoskeletal: Present: strength equal bilaterally - Psychiatric Psychiatric: Present: A&O x's 3, appropriate affect, intact judgment & insight - Labs CBC & Chem 7: 01/08/18 15:55 01/10/18 08:20 Labs: Abnormal Lab Results - Last 24 Hours (Table) 01/09/18 Range/Units 13:09 Sodium 131 L (137-145) mmol/L Carbon Dioxide 20 L (22-30) mmol/L Creatinine 0.60 L (0.66-1.25) mg/dL Glucose 100 H (74-99) mg/dL Assessment and Plan Assessment: Assessment and Plan Plan: 1. Generalized weakness multifactorial secondary to hyponatremia, malnutrition and alcohol abuse, and thiamine 100 mg orally once every day, folic acid milligrams once every day, multivitamin once every day, continue with WA protocol. 2. Hyponatremia. Patient will begin IV fluids 0.9 normal saline. Recheck sodium in the morning. 3. Malnutrition and alcohol abuse. Continue Ativan per protocol, thiamine, consult with social work for substance abuse referrals. 4. Possible gram-negative pneumonia. Discontinue Rocephin, start the patient on Levaquin 500 mg IV piggyback every 24 hours, continue DuoNeb nebulization 4 times every day. Continue oxygen support. 5. Gastroenteritis. CAT scan of the abdomen and pelvis with contrast ordered. Zofran as needed for nausea. Continue Protonix. Stool to be checked for C. difficile toxin. 6. Hypertension. Continue losartan 50 mg daily. 7. Tobacco use and dependence. Continue nicotine patch. 8. GI prophylaxis. Protonix. 9. DVT prophylaxis. Lovenox. 10. Patient is not ready to go home, physical therapy evaluation.
[2018-01-10] MEDS ORDERED: Potassium Replacement Protocol 1 EACH MISC MISCELLANE PRN (15:25)
[2018-01-10] MEDS: POTASSIUM CHLORIDE ER 20 MEQ TAB.ER PO SCH ×2 (16:05→17:09)
[2018-01-10] MEDS: ACETAMINOPHEN TAB 325 MG TAB PO PRN (16:05)
[2018-01-10] MEDS: MAGNESIUM SULFATE-D5W PMX 1 GM in DEXTROSE/WATER 1 100ML.BAG IVPB SCH ×2 (16:06→17:09)
[2018-01-10] MEDS: IBUPROFEN 400 MG TAB PO PRN (17:25)
[2018-01-10] MEDS: PIPERACILLIN-TAZOBACTAM 3.375 GM in DEXTROSE/WATER 1 50ML.BAG IVPB SCH (18:02)
[2018-01-10] MEDS: MELATONIN 3 MG TABLET PO SCH (20:54)
[2018-01-10] MEDS: hydrOXYzine HCL 25 MG TAB PO SCH (20:54)
[2018-01-10] MEDS: LATANOPROST 0.005% OPHTH DROPS 2.5 ML BTL RIGHT EYE SCH (20:55)
[2018-01-11] MEDS: PIPERACILLIN-TAZOBACTAM 3.375 GM in DEXTROSE/WATER 1 50ML.BAG IVPB SCH ×4 (00:55→23:33)
[2018-01-11] MEDS: IPRATROPIUM-ALBUTEROL 3 ML NEB INHALATION PRN ×3 (07:20→19:49)
[2018-01-11] MEDS: FOLIC ACID 1 MG TAB PO SCH (07:33)
[2018-01-11] MEDS: LOSARTAN 50 MG TAB PO SCH (07:33)
[2018-01-11] MEDS: NICOTINE 21MG/24HR PATCH TRANSDERM SCH (07:33)
[2018-01-11] MEDS: THIAMINE 100 MG TAB PO SCH ×2 (07:33→15:05)
[2018-01-11] MEDS: LORATADINE 10 MG TAB PO SCH (07:33)
[2018-01-11] MEDS: cloNIDine HCL 0.1 MG TAB PO SCH ×2 (07:33→20:37)
[2018-01-11] MEDS: CITALOPRAM HYDROBROMIDE 20 MG TAB PO SCH (07:33)
[2018-01-11] MEDS: MULTIVITAMINS, THERA 1 EACH TAB PO SCH (07:33)
[2018-01-11] MEDS: SODIUM CHLORIDE 0.9% 1,000 ML IV SCH ×2 (07:34→20:37)
[2018-01-11] MEDS: ENOXAPARIN 40 MG/0.4 ML SYRINGE SQ SCH (07:34)
[2018-01-11] MEDS: PANTOPRAZOLE 40 MG/10 ML VIAL IVP SCH (07:34)
[2018-01-11 08:39] LABS: Basophils % (A) 0 %; Eosinophils % (A) 0 %; HCT 38.3 % (39.0-53.0); HGB 12.7 gm/dL (13.0-17.5); Lymphocytes % (A) 22 %; MCH 33.6 pg (25.0-35.0); MCHC 33.1 g/dL (31.0-37.0); MCV 101.6 fL (80.0-100.0); Monocytes # (A) 0.3 k/uL (0-1.0); Monocytes % (A) 6 %; Neutrophils # (A) 3.1 k/uL (1.3-7.7); Neutrophils % (A) 69 %; Platelet Count 195 k/uL (150-450); RBC 3.77 m/uL (4.30-5.90); RDW 12.7 % (11.5-15.5); WBC 4.4 k/uL (3.8-10.6)
[2018-01-11 09:01] LABS: ALT 32 U/L (21-72); AST 44 U/L (17-59); Albumin 3.6 g/dL (3.5-5.0); Alkaline Phosphatase 61 U/L (38-126); Anion Gap 11 mmol/L; Blood Urea Nitrogen 6 mg/dL (9-20); Calcium 8.5 mg/dL (8.4-10.2); Carbon Dioxide 26 mmol/L (22-30); Chloride 90 mmol/L (98-107); Glucose 95 mg/dL (74-99); Magnesium 1.8 mg/dL (1.6-2.3); Potassium 3.6 mmol/L (3.5-5.1); Sodium 127 mmol/L (137-145); Total Bilirubin 0.4 mg/dL (0.2-1.3); Total Protein 6.5 g/dL (6.3-8.2)
--- NOTE | 2018-01-11 10:03 | P.PN ---
Subjective Progress Note Date: 01/11/18 This is a 52-year-old male patient of Dr. Britton with a past medical history for gastroesophageal reflux disease, hypertension, alcohol abuse. Patient drinks a 6 pack per day for at least 35 years. His last alcohol intake was 3 days ago. He denies having withdrawal symptoms or seizure activity in the past He states he came into the hospital because of coughing he thought he had pneumonia. Patient started having vomiting and chest pain on Friday evening according to his mother. He denies any coffee ground color or blood in the emesis. He has also had diarrhea 2-3 times per day that is a watery consistency and abdominal ache. He came into [facility] emergency center for evaluation. He also had complaints of decreased ability to walk and generalized weakness. EKG was sinus tachycardia, sodium 123, chloride 88, potassium 3.6, creatinine 0.73, blood sugar 118. Troponin was negative. D-dimer was 1.36 and patient underwent a CTA of the chest that was negative for pulmonary embolism. Emphysema. Mild fibrotic changes at the right lower lobe. Pleural region. Few bilateral bronchial lymph nodes probably related to inflammatory disease. Ultrasound of the bilateral lower extremities negative for DVT. Patient was started on IV fluids, thiamine, Protonix and Zofran and [facility]. 01/10: Patient appears to be more jittery today, he stated he has not had a drink since he came in, we will start clonidine 0.1 mg orally twice every day, and folic acid 1 mg orally once every day, and multivitamin once a day, discontinue diazepam, continue with CIWA protocol, switch Rocephin to Levaquin. 01/11: Patient is really a lot better today he denies any chest pain, shortness of breath, he is coughing less phlegm, he had a temperature yesterday we had added Zosyn to the Levaquin and he is maintained on the current management. Objective - Vital Signs Vital signs: Vital Signs Temp 99.8 F H 01/11/18 06:05 Pulse 85 01/11/18 06:05 Resp 20 01/11/18 06:05 BP 145/74 01/11/18 06:05 Pulse Ox 99 01/11/18 06:05 Intake & Output 01/10/18 01/11/18 01/11/18 18:59 06:59 18:59 Other: Voiding Method Toilet Toilet Urinal Urinal # Voids 1 2 - Exam - Constitutional General appearance: Present: average body habitus, mild distress - EENT Eyes: Present: anicteric sclerae, EOMI, PERRLA, normal appearance. Absent: ptosis, scleral icterus ENT: Present: hearing grossly normal, NA/AT, normal oropharynx Ears: bilateral: normal - Neck Neck: Present: normal ROM. Absent: lymphadenopathy, rigidity, stridor, thyromegaly Carotids: bilateral: upstroke normal Thyroid: bilateral: normal size - Respiratory Respiratory: bilateral: diminished, rhonchi, wheezing, prolonged expiration, negative: dullness, rales - Cardiovascular Rhythm: regular Heart sounds: normal: S1, S2 - Gastrointestinal General gastrointestinal: Present: normal bowel sounds, soft. Absent: splenomegaly, tenderness - Integumentary Integumentary: Present: normal, normal turgor - Musculoskeletal Musculoskeletal: Present: strength equal bilaterally - Psychiatric Psychiatric: Present: A&O x's 3, appropriate affect, intact judgment & insight - Labs CBC & Chem 7: 01/11/18 08:05 01/11/18 08:05 Labs: Abnormal Lab Results - Last 24 Hours (Table) 01/10/18 01/10/18 Range/Units 08:20 08:20 Sodium 132 L (137-145) mmol/L Potassium 3.4 L (3.5-5.1) mmol/L Chloride 96 L (98-107) mmol/L BUN 5 L (9-20) mg/dL Creatinine 0.64 L (0.66-1.25) mg/dL Glucose 129 H (74-99) mg/dL Magnesium 1.5 L (1.6-2.3) mg/dL Assessment and Plan Assessment: Assessment and Plan Plan: 1. Generalized weakness multifactorial secondary to hyponatremia, malnutrition and alcohol abuse, and thiamine 100 mg orally once every day, folic acid milligrams once every day, multivitamin once every day, continue with CIWA protocol. 2. Hyponatremia. Patient will begin IV fluids 0.9 normal saline. Recheck sodium in the morning. 3. Malnutrition and alcohol abuse. Continue Ativan per protocol, thiamine, consult with social work for substance abuse referrals. 4. Possible gram-negative pneumonia. Discontinue Rocephin, start the patient on Levaquin 500 mg IV piggyback every 24 hours, continue DuoNeb nebulization 4 times every day. Continue oxygen support. Added Zosyn 4.5 g IV piggyback every 8 hours, sputum culture. 5. Gastroenteritis. CAT scan of the abdomen and pelvis with contrast ordered. Zofran as needed for nausea. Continue Protonix. Stool to be checked for C. difficile toxin. 6. Hypertension. Continue losartan 50 mg daily. 7. Tobacco use and dependence. Continue nicotine patch. 8. GI prophylaxis. Protonix. 9. DVT prophylaxis. Lovenox. 10. Patient is not ready to go home, physical therapy evaluation.
[2018-01-11] MEDS: LEVOFLOXACIN 500MG-D5W PMX 500 MG in DEXTROSE/WATER 1 100ML.BAG IVPB SCH (11:07)
[2018-01-11] MEDS: ACETAMINOPHEN TAB 325 MG TAB PO PRN (15:04)
[2018-01-11] MEDS: MELATONIN 3 MG TABLET PO SCH (20:37)
[2018-01-11] MEDS: hydrOXYzine HCL 25 MG TAB PO SCH (20:37)
[2018-01-11] MEDS: LATANOPROST 0.005% OPHTH DROPS 2.5 ML BTL RIGHT EYE SCH (20:38)
[2018-01-12] MEDS: IBUPROFEN 400 MG TAB PO PRN (00:11)
[2018-01-12] MEDS: PIPERACILLIN-TAZOBACTAM 3.375 GM in DEXTROSE/WATER 1 50ML.BAG IVPB SCH ×2 (08:06→15:49)
[2018-01-12] MEDS: NICOTINE 21MG/24HR PATCH TRANSDERM SCH (08:06)
[2018-01-12] MEDS: CITALOPRAM HYDROBROMIDE 20 MG TAB PO SCH (08:06)
[2018-01-12] MEDS: PANTOPRAZOLE 40 MG/10 ML VIAL IVP SCH (08:06)
[2018-01-12] MEDS: cloNIDine HCL 0.1 MG TAB PO SCH ×2 (08:06→20:45)
[2018-01-12] MEDS: ENOXAPARIN 40 MG/0.4 ML SYRINGE SQ SCH (08:06)
[2018-01-12] MEDS: LORATADINE 10 MG TAB PO SCH (08:07)
[2018-01-12] MEDS: LOSARTAN 50 MG TAB PO SCH (08:07)
[2018-01-12] MEDS: SODIUM CHLORIDE 0.9% 1,000 ML IV SCH ×2 (08:12→20:45)
[2018-01-12] MEDS: IPRATROPIUM-ALBUTEROL 3 ML NEB INHALATION PRN ×2 (09:41→20:00)
[2018-01-12] MEDS: LEVOFLOXACIN 500MG-D5W PMX 500 MG in DEXTROSE/WATER 1 100ML.BAG IVPB SCH (12:14)
[2018-01-12] MEDS: THIAMINE 100 MG TAB PO SCH ×2 (12:15→15:49)
[2018-01-12] MEDS: FOLIC ACID 1 MG TAB PO SCH (12:15)
[2018-01-12] MEDS: MULTIVITAMINS, THERA 1 EACH TAB PO SCH (12:15)
--- NOTE | 2018-01-12 14:30 | XR ---
EXAMINATION TYPE: XR abdomen 1V DATE OF EXAM: 01/12/2018 1:40 PM CLINICAL HISTORY: Left-sided abdominal pain and tenderness. TECHNIQUE: Single supine KUB image of the abdomen is obtained. COMPARISON: 06/06/2010. FINDINGS: Scattered gas is seen in non-distended small bowel loops. Gas and fecal material is seen in non-distended colon. There is no visceromegaly, pneumoperitoneum, or abnormal calcification apprecia hortencia. The lung bases are clear and the osseous structures are intact. Mild to moderate bilateral femor al acetabular arthropathy and moderate degenerative changes of the lumbosacral junction are noted. Mo derate calcific atheromatous changes are appreciated of the common iliac arteries and their branches. IMPRESSION: Nonobstructive bowel gas pattern.
--- NOTE | 2018-01-12 15:17 | P.PN ---
Subjective Progress Note Date: 01/12/18 This is a 52-year-old male patient of Dr. Britton with a past medical history for gastroesophageal reflux disease, hypertension, alcohol abuse. Patient drinks a 6 pack per day for at least 35 years. His last alcohol intake was 3 days ago. He denies having withdrawal symptoms or seizure activity in the past He states he came into the hospital because of coughing he thought he had pneumonia. Patient started having vomiting and chest pain on Friday evening according to his mother. He denies any coffee ground color or blood in the emesis. He has also had diarrhea 2-3 times per day that is a watery consistency and abdominal ache. He came into [facility] emergency center for evaluation. He also had complaints of decreased ability to walk and generalized weakness. EKG was sinus tachycardia, sodium 123, chloride 88, potassium 3.6, creatinine 0.73, blood sugar 118. Troponin was negative. D-dimer was 1.36 and patient underwent a CTA of the chest that was negative for pulmonary embolism. Emphysema. Mild fibrotic changes at the right lower lobe. Pleural region. Few bilateral bronchial lymph nodes probably related to inflammatory disease. Ultrasound of the bilateral lower extremities negative for DVT. Patient was started on IV fluids, thiamine, Protonix and Zofran [facility] 01/10: Patient appears to be more jittery today, he stated he has not had a drink since he came in, we will start clonidine 0.1 mg orally twice every day, and folic acid 1 mg orally once every day, and multivitamin once a day, discontinue diazepam, continue with CIWA protocol, switch Rocephin to Levaquin. 01/11: Patient is really a lot better today he denies any chest pain, shortness of breath, he is coughing less phlegm, he had a temperature yesterday we had added Zosyn to the Levaquin and he is maintained on the current management. 01/12: Patient has been afebrile greater than 24 hours. White count is normal at 4.4, sodium is 127, chloride 90, BUN 6 and creatinine 0.65. Magnesium is 1.8. Patient states he is bringing up some green sputum today. Sputum culture to be obtained. He states he sometimes is having diarrhea but not consistently. He denies any bladder tarriness to his stools. He does have noted left abdominal tenderness. KUB reveals nonobstructive bowel gas pattern. CT of the abdomen and pelvis done the day before reveals minimal right middle lobe infiltrate. No acute findings in the abdomen or pelvis. Objective - Vital Signs Vital signs: Vital Signs Temp 97.1 F L 01/12/18 06:55 Pulse 74 01/12/18 09:54 Resp 16 01/12/18 09:54 BP 143/77 01/12/18 06:55 Pulse Ox 95 01/12/18 06:55 Intake & Output 01/11/18 01/12/18 01/12/18 18:59 06:59 18:59 Intake Total 600 Output Total 1 Balance 599 Intake: Oral 600 Output: Urine/Stool Mix 1 Other: # Voids 6 1 # Bowel Movements 1 - Exam - Constitutional General appearance: Present: average body habitus, mild distress - EENT Eyes: Present: anicteric sclerae, EOMI, PERRLA, normal appearance. Absent: ptosis, scleral icterus ENT: Present: hearing grossly normal, NA/AT, normal oropharynx Ears: bilateral: normal - Neck Neck: Present: normal ROM. Absent: lymphadenopathy, rigidity, stridor, thyromegaly Carotids: bilateral: upstroke normal Thyroid: bilateral: normal size - Respiratory Respiratory: bilateral: diminished, rhonchi, wheezing, prolonged expiration, negative: dullness, rales - Cardiovascular Rhythm: regular Heart sounds: normal: S1, S2 - Gastrointestinal General gastrointestinal: Present: normal bowel sounds, soft. Absent: splenomegaly, tenderness - Integumentary Integumentary: Present: normal, normal turgor - Musculoskeletal Musculoskeletal: Present: strength equal bilaterally - Psychiatric Psychiatric: Present: A&O x's 3, appropriate affect, intact judgment & insight - Labs CBC & Chem 7: 01/11/18 08:05 01/11/18 08:05 Assessment and Plan Plan: 1. Generalized weakness multifactorial secondary to hyponatremia, malnutrition and alcohol abuse, possible pneumonia and gastroenteritis. Patient started on ceftriaxone. 2. Hyponatremia. Continue IV fluids 0.9 normal saline. Monitor sodium. 3. Malnutrition and alcohol abuse. Continue Ativan per protocol, thiamine, consult with social work for substance abuse referrals. 4. Possible gram-negative pneumonia. Discontinue Rocephin, start the patient on Levaquin 500 mg IV piggyback every 24 hours, continue DuoNeb nebulization 4 times every day. Continue oxygen support. Added Zosyn 4.5 g IV piggyback every 8 hours, sputum culture. 5. Gastroenteritis. CAT scan of the abdomen and pelvis with contrast ordered. Zofran as needed for nausea. Continue Protonix. Stool to be checked for C. difficile toxin. 6. Hypertension. Continue losartan 50 mg daily. 7. Tobacco use and dependence. Continue nicotine patch. 8. GI prophylaxis. Protonix. 9. DVT prophylaxis. Lovenox. Discharge plan: Return home Impression and plan of care have been directed as dictated by the signing physician. Tran Yao nurse practitioner acting as scribe for signing physician.
[2018-01-12] MEDS: hydrOXYzine HCL 25 MG TAB PO SCH (20:44)
[2018-01-12] MEDS: LATANOPROST 0.005% OPHTH DROPS 2.5 ML BTL RIGHT EYE SCH (20:45)
[2018-01-12] MEDS: MELATONIN 3 MG TABLET PO SCH (20:45)
[2018-01-13] MEDS: PIPERACILLIN-TAZOBACTAM 3.375 GM in DEXTROSE/WATER 1 50ML.BAG IVPB SCH ×3 (00:09→15:17)
[2018-01-13] MEDS ORDERED: PANTOPRAZOLE 40 MG TABLET PO SCH (07:30)
[2018-01-13] MEDS: LOSARTAN 50 MG TAB PO SCH (08:09)
[2018-01-13] MEDS: LORATADINE 10 MG TAB PO SCH (08:09)
[2018-01-13] MEDS: NICOTINE 21MG/24HR PATCH TRANSDERM SCH (08:09)
[2018-01-13] MEDS: PANTOPRAZOLE 40 MG/10 ML VIAL IVP SCH (08:09)
[2018-01-13] MEDS: CITALOPRAM HYDROBROMIDE 20 MG TAB PO SCH (08:09)
[2018-01-13] MEDS: ENOXAPARIN 40 MG/0.4 ML SYRINGE SQ SCH (08:09)
[2018-01-13] MEDS: cloNIDine HCL 0.1 MG TAB PO SCH ×2 (08:09→21:52)
[2018-01-13] MEDS: MULTIVITAMINS, THERA 1 EACH TAB PO SCH (11:07)
[2018-01-13] MEDS: THIAMINE 100 MG TAB PO SCH ×2 (11:07→15:17)
[2018-01-13] MEDS: FOLIC ACID 1 MG TAB PO SCH (11:07)
[2018-01-13] MEDS: LEVOFLOXACIN 500 MG TAB PO SCH (11:07)
[2018-01-13] MEDS: SODIUM CHLORIDE 0.9% 1,000 ML IV SCH (11:09)
[2018-01-13 12:02] LABS: Anion Gap 8 mmol/L; Blood Urea Nitrogen 8 mg/dL (9-20); Calcium 9.1 mg/dL (8.4-10.2); Carbon Dioxide 32 mmol/L (22-30); Chloride 92 mmol/L (98-107); Glucose 84 mg/dL (74-99); Potassium 4.3 mmol/L (3.5-5.1); Sodium 132 mmol/L (137-145)
[2018-01-13] MEDS: IPRATROPIUM-ALBUTEROL 3 ML NEB INHALATION PRN ×2 (13:55→20:24)
[2018-01-13 14:31] VITALS: RESP 16
--- NOTE | 2018-01-13 20:10 | P.PN ---
Subjective Progress Note Date: 01/13/18 This is a 52-year-old male patient of Dr. Britton with a past medical history for gastroesophageal reflux disease, hypertension, alcohol abuse. Patient drinks a 6 pack per day for at least 35 years. His last alcohol intake was 3 days ago. He denies having withdrawal symptoms or seizure activity in the past He states he came into the hospital because of coughing he thought he had pneumonia. Patient started having vomiting and chest pain on Friday evening according to his mother. He denies any coffee ground color or blood in the emesis. He has also had diarrhea 2-3 times per day that is a watery consistency and abdominal ache. He came into [facility] emergency center for evaluation. He also had complaints of decreased ability to walk and generalized weakness. EKG was sinus tachycardia, sodium 123, chloride 88, potassium 3.6, creatinine 0.73, blood sugar 118. Troponin was negative. D-dimer was 1.36 and patient underwent a CTA of the chest that was negative for pulmonary embolism. Emphysema. Mild fibrotic changes at the right lower lobe. Pleural region. Few bilateral bronchial lymph nodes probably related to inflammatory disease. Ultrasound of the bilateral lower extremities negative for DVT. Patient was started on IV fluids, thiamine, Protonix and Zofran [facility]. 01/10: Patient appears to be more jittery today, he stated he has not had a drink since he came in, we will start clonidine 0.1 mg orally twice every day, and folic acid 1 mg orally once every day, and multivitamin once a day, discontinue diazepam, continue with CIWA protocol, switch Rocephin to Levaquin. 01/11: Patient is really a lot better today he denies any chest pain, shortness of breath, he is coughing less phlegm, he had a temperature yesterday we had added Zosyn to the Levaquin and he is maintained on the current management. 01/12: Patient has been afebrile greater than 24 hours. White count is normal at 4.4, sodium is 127, chloride 90, BUN 6 and creatinine 0.65. Magnesium is 1.8. Patient states he is bringing up some green sputum today. Sputum culture to be obtained. He states he sometimes is having diarrhea but not consistently. He denies any bladder tarriness to his stools. He does have noted left abdominal tenderness. KUB reveals nonobstructive bowel gas pattern. CT of the abdomen and pelvis done the day before reveals minimal right middle lobe infiltrate. No acute findings in the abdomen or pelvis. 01/13: Soium 132, potassium 4.3, chloride 92 and CO2 32, BUN 8 and creatinine 0.76. PT and OT have evaluated patient with recommendations for home with home care. Social work has provided substance abuse rehab information to the patient. manager treasury has set up home care. Anticipate discharge home tomorrow. Objective - Vital Signs Vital signs: Vital Signs Temp 96.3 F L 01/13/18 07:00 Pulse 69 01/13/18 07:00 Resp 18 01/13/18 07:00 BP 156/86 01/13/18 07:00 Pulse Ox 98 01/13/18 07:00 Intake & Output 01/12/18 01/13/18 01/13/18 18:59 06:59 18:59 Output Total 2 Balance -2 Output: Urine/Stool Mix 2 Other: Voiding Method Toilet Urinal # Voids 1 2 1 # Bowel Movements 1 - Exam - Constitutional General appearance: Present: average body habitus, mild distress - EENT Eyes: Present: anicteric sclerae, EOMI, PERRLA, normal appearance. Absent: ptosis, scleral icterus ENT: Present: hearing grossly normal, NA/AT, normal oropharynx Ears: bilateral: normal - Neck Neck: Present: normal ROM. Absent: lymphadenopathy, rigidity, stridor, thyromegaly Carotids: bilateral: upstroke normal Thyroid: bilateral: normal size - Respiratory Respiratory: bilateral: diminished, rhonchi, wheezing, prolonged expiration, negative: dullness, rales - Cardiovascular Rhythm: regular Heart sounds: normal: S1, S2 - Gastrointestinal General gastrointestinal: Present: normal bowel sounds, soft. Absent: splenomegaly, tenderness - Integumentary Integumentary: Present: normal, normal turgor - Musculoskeletal Musculoskeletal: Present: strength equal bilaterally - Psychiatric Psychiatric: Present: A&O x's 3, appropriate affect, intact judgment & insight - Labs CBC & Chem 7: 01/11/18 08:05 01/13/18 11:29 Labs: Abnormal Lab Results - Last 24 Hours (Table) 01/13/18 Range/Units 11:29 Sodium 132 L (137-145) mmol/L Chloride 92 L (98-107) mmol/L Carbon Dioxide 32 H (22-30) mmol/L BUN 8 L (9-20) mg/dL Assessment and Plan Plan: 1. Generalized weakness multifactorial secondary to hyponatremia, malnutrition and alcohol abuse, possible pneumonia and gastroenteritis. Patient started on ceftriaxone. 2. Hyponatremia, improved Monitor sodium. 3. Malnutrition and alcohol abuse. Continue Ativan per protocol, thiamine, consult with social work for substance abuse referrals. 4. Possible gram-negative pneumonia. Discontinue Rocephin, start the patient on Levaquin 500 mg IV piggyback every 24 hours, continue DuoNeb nebulization 4 times every day. Continue oxygen support. Added Zosyn 4.5 g IV piggyback every 8 hours, sputum culture. 5. Gastroenteritis. CAT scan of the abdomen and pelvis with contrast ordered. Zofran as needed for nausea. Continue Protonix. 6. Hypertension. Continue losartan 50 mg daily. 7. Tobacco use and dependence. Continue nicotine patch. 8. GI prophylaxis. Protonix. 9. DVT prophylaxis. Lovenox. Discharge plan: Home with [facility] tomorrow Impression and plan of care have been directed as dictated by the signing physician. Tran Yao nurse practitioner acting as scribe for signing physician.
[2018-01-13] MEDS: LATANOPROST 0.005% OPHTH DROPS 2.5 ML BTL RIGHT EYE SCH (21:51)
[2018-01-13] MEDS: hydrOXYzine HCL 25 MG TAB PO SCH (21:52)
[2018-01-13] MEDS: MELATONIN 3 MG TABLET PO SCH (21:52)
[2018-01-13] MEDS: IBUPROFEN 400 MG TAB PO PRN (23:02)
[2018-01-14] MEDS: PIPERACILLIN-TAZOBACTAM 3.375 GM in DEXTROSE/WATER 1 50ML.BAG IVPB SCH ×2 (00:42→07:37)
[2018-01-14] MEDS: SODIUM CHLORIDE 0.9% 1,000 ML IV SCH ×2 (03:59→11:11)
[2018-01-14 06:59] VITALS: BP 145/77; PULSE 73; TEMP 98.2
[2018-01-14] MEDS: LORATADINE 10 MG TAB PO SCH (07:37)
[2018-01-14] MEDS: cloNIDine HCL 0.1 MG TAB PO SCH (07:37)
[2018-01-14] MEDS: CITALOPRAM HYDROBROMIDE 20 MG TAB PO SCH (07:37)
[2018-01-14] MEDS: PANTOPRAZOLE 40 MG/10 ML VIAL IVP SCH (07:37)
[2018-01-14] MEDS: LOSARTAN 50 MG TAB PO SCH (07:37)
[2018-01-14] MEDS: ENOXAPARIN 40 MG/0.4 ML SYRINGE SQ SCH (07:37)
[2018-01-14] MEDS: NICOTINE 21MG/24HR PATCH TRANSDERM SCH (07:37)
[2018-01-14 09:48] LABS: Anion Gap 10 mmol/L; Blood Urea Nitrogen 9 mg/dL (9-20); Calcium 9.4 mg/dL (8.4-10.2); Carbon Dioxide 28 mmol/L (22-30); Chloride 95 mmol/L (98-107); Glucose 138 mg/dL (74-99); Sodium 133 mmol/L (137-145)
[2018-01-14] MEDS: LEVOFLOXACIN 500 MG TAB PO SCH (11:12)
[2018-01-14] MEDS: THIAMINE 100 MG TAB PO SCH (11:12)
[2018-01-14] MEDS: FOLIC ACID 1 MG TAB PO SCH (11:12)
[2018-01-14] MEDS: MULTIVITAMINS, THERA 1 EACH TAB PO SCH (11:12)
--- NOTE | 2018-01-14 11:40 | P.DS ---
Providers Date of admission: 01/08/18 19:21 Expected date of discharge: 01/14/18 Attending physician: Alfredo Beavers Primary care physician: Carlos Britton [facility] Course: This is a 52-year-old male patient of Dr. Britton with a past medical history for gastroesophageal reflux disease, hypertension, alcohol abuse. Patient drinks a 6 pack per day for at least 35 years. His last alcohol intake was 3 days ago. He denies having withdrawal symptoms or seizure activity in the past He states he came into the hospital because of coughing he thought he had pneumonia. Patient started having vomiting and chest pain on Friday evening according to his mother. He denies any coffee ground color or blood in the emesis. He has also had diarrhea 2-3 times per day that is a watery consistency and abdominal ache. He came into [facility] emergency center for evaluation. He also had complaints of decreased ability to walk and generalized weakness. EKG was sinus tachycardia, sodium 123, chloride 88, potassium 3.6, creatinine 0.73, blood sugar 118. Troponin was negative. D-dimer was 1.36 and patient underwent a CTA of the chest that was negative for pulmonary embolism. Emphysema. Mild fibrotic changes at the right lower lobe. Pleural region. Few bilateral bronchial lymph nodes probably related to inflammatory disease. Ultrasound of the bilateral lower extremities negative for DVT. Patient was started on IV fluids, thiamine, Protonix and Zofran [facility]. 01/10: Patient appears to be more jittery today, he stated he has not had a drink since he came in, we will start clonidine 0.1 mg orally twice every day, and folic acid 1 mg orally once every day, and multivitamin once a day, discontinue diazepam, continue with CIWA protocol, switch Rocephin to Levaquin. 01/11: Patient is really a lot better today he denies any chest pain, shortness of breath, he is coughing less phlegm, he had a temperature yesterday we had added Zosyn to the Levaquin and he is maintained on the current management. 01/12: Patient has been afebrile greater than 24 hours. White count is normal at 4.4, sodium is 127, chloride 90, BUN 6 and creatinine 0.65. Magnesium is 1.8. Patient states he is bringing up some green sputum today. Sputum culture to be obtained. He states he sometimes is having diarrhea but not consistently. He denies any bladder tarriness to his stools. He does have noted left abdominal tenderness. KUB reveals nonobstructive bowel gas pattern. CT of the abdomen and pelvis done the day before reveals minimal right middle lobe infiltrate. No acute findings in the abdomen or pelvis. 01/13: Soium 132, potassium 4.3, chloride 92 and CO2 32, BUN 8 and creatinine 0.76. PT and OT have evaluated patient with recommendations for home with home care. Social work has provided substance abuse rehab information to the patient. managing manager has set up home care. Anticipate discharge home tomorrow. 01/14: Repeat sodium 133, chloride 95. Patient will be discharged home today in stable condition. Discharge diagnoses: 1. Generalized weakness multifactorial secondary to hyponatremia, malnutrition and alcohol abuse, pneumonia and gastroenteritis. 2. Hyponatremia. 3. Malnutrition and alcohol abuse. 4. Possible gram-negative pneumonia. 5. Gastroenteritis. 6. Hypertension. 7. Tobacco use and dependence. Discharge plan: Return home with [facility] Impression and plan of care have been directed as dictated by the signing physician. Tran Yao nurse practitioner acting as scribe for signing physician. Patient Condition at Discharge: Good Plan - Discharge Summary Discharge Rx Participant: No New Discharge Prescriptions: New cloNIDine HCL [Catapres] 0.1 mg PO BID #60 tab Folic Acid 1 mg PO DAILY@1200 #30 tab Levofloxacin [Levaquin] 500 mg PO Q24H #7 tab Multivitamins, Thera [Multivitamin (formulary)] 1 each PO DAILY@1200 tab Nicotine 21Mg/24Hr Patch [Habitrol] 1 patch TRANSDERM DAILY #30 patch Thiamine [Vitamin B-1] 100 mg PO BID@1200,1700 #60 tab Continue hydrOXYzine HCL 25 mg PO HS Ranitidine HCl 150 mg PO BID Latanoprost Ophth [Xalatan 0.005%] 1 drops RIGHT EYE HS Nicotine [Nicotrol] 1 puff INHALATION DIRECTED Ibuprofen [Motrin] 400 mg PO TID PRN PRN Reason: Pain Melatonin 3 mg PO HS Losartan Potassium 50 mg PO DAILY Ergocalciferol [Vitamin D2 (DRISDOL)] 50,000 unit PO Q30D Citalopram Hydrobromide [Citalopram HBr] 20 mg PO DAILY Cetirizine HCl [Zyrtec] 10 mg PO DAILY Discontinued Amoxicillin 500 mg PO TID Discharge Medication List Cetirizine HCl [Zyrtec] 10 mg PO DAILY 01/08/18 [History] Citalopram Hydrobromide [Citalopram HBr] 20 mg PO DAILY 01/08/18 [History] Ergocalciferol [Vitamin D2 (DRISDOL)] 50,000 unit PO Q30D 01/08/18 [History] Ibuprofen [Motrin] 400 mg PO TID PRN 01/08/18 [History] Latanoprost Ophth [Xalatan 0.005%] 1 drops RIGHT EYE HS 01/08/18 [History] Losartan Potassium 50 mg PO DAILY 01/08/18 [History] Melatonin 3 mg PO HS 01/08/18 [History] Nicotine [Nicotrol] 1 puff INHALATION DIRECTED 01/08/18 [History] Ranitidine HCl 150 mg PO BID 01/08/18 [History] hydrOXYzine HCL 25 mg PO HS 01/08/18 [History] Folic Acid 1 mg PO DAILY@1200 #30 tab 01/14/18 [Rx] Levofloxacin [Levaquin] 500 mg PO Q24H #7 tab 01/14/18 [Rx] Multivitamins, Thera [Multivitamin (formulary)] 1 each PO DAILY@1200 tab [Rx] Nicotine 21Mg/24Hr Patch [Habitrol] 1 patch TRANSDERM DAILY #30 patch 01/14/18 [ Rx] Thiamine [Vitamin B-1] 100 mg PO BID@1200,1700 #60 tab 01/14/18 [Rx] cloNIDine HCL [Catapres] 0.1 mg PO BID #60 tab 01/14/18 [Rx] Follow up Appointment(s)/Referral(s): [facility], [NON-STAFF] - Carlos Britton MD [Primary Care Provider] - 01/23/18 8:45 am Patient Instructions/Handouts: Abuse of Alcohol (DC) Activity/Diet/Wound Care/Special Instructions: No smoking, no alcohol. References provided. Cardiac diet. Activity as tolerated.
--- NOTE | 2018-01-16 08:41 | CDI ---
Last Revision, August 2017 Documentation Clarification Form Date: 01/16/18 From: Aria Brunner Phone: If you have a question regarding this query, please contact Nichol Allen at [phone] between 8am and 5pm Admit Date: 01/08/2018 7:21:00 PM Patient Name: Lopez Queen Visit Number: [id number] Discharge Date: 01/16/18 ATTENTION: The Clinical Documentation Specialists (CDI) and [facility] Coding Staff appreciate your assistance in clarifying documentation. Please respond to the clarification below the line at the bottom and electronically sign. The CDI & [facility] Coding staff will review the response and follow-up if needed. Please note: Queries are made part of the Legal Health Record. If you have any questions, please contact the author of this message via ITS. Dr. Alfredo Beavers In the chemistry the patient's magnesium shows to be 1.5 on admission. History/Risk Factors: Patient has a history of alcohol abuse and presents to the hospital with pneumonia, hyponatremia and gastroenteritis. Clinical indicators: Generalized weakness Abnormal: Magnesium is 1.5 on admission and on 01/10, 1.8 on 01/11 Treatment: IV magnesium Clinical significance of diagnostic testing and treatment CANNOT be assumed or coded without physician documentation of significance if any. Please clarify what the abnormal laboratory signifies: Disease process, please specify Infectious process, please specify Abnormal Lab Value Unable to determine Other, please specify Please continue to document in your progress notes and discharge summary in order to capture severity of illness and risk of mortality. Include clinical findings that support your diagnosis. Hypomagnesemia due to chronic alcohol use and dependence with transient pancreatitis MTDD
--- NOTE | 2018-01-16 08:58 | CDI ---
Last Revision, August 2017 Documentation Clarification Form Date: 01/16/18 From: Aria Brunner Phone: If you have a question regarding this query, please contact Nichol Allen at [phone] between 8am and 5pm Admit Date: 01/08/2018 7:21:00 PM Patient Name: Lopez Queen Visit Number: [id number] Discharge Date: 01/16/18 ATTENTION: The Clinical Documentation Specialists (CDI) and [facility] Coding Staff appreciate your assistance in clarifying documentation. Please respond to the clarification below the line at the bottom and electronically sign. The CDI & [facility] Coding staff will review the response and follow-up if needed. Please note: Queries are made part of the Legal Health Record. If you have any questions, please contact the author of this message via ITS. Dr. Alfredo Beavers Malnutrition has been documented in ED note, H&P and discharge summary. History/Risk Factors: Alcohol abuse Clinical Indicators: Generalized weakness Labs: Albumin/Total Protein: Protein: 01/08 - 7.1, 01/11 - 6.5; Albumin: 01/08 - 4.2, 01/11 - 3.6 Current BMI: 21.1 Insufficient energy intake: Eating 75 - 100% of meals while hospitalized Weight Loss: Per H&P, patient denies weight change Loss of subcutaneous fat: No documentation of this Loss of muscle mass: No documentation of this Fluid accumulation: No documentation of this Decreased hand rope tier strength: Treatment: None Dietary Consult: No dietary consult Supplements/TPN: No supplement given In your professional opinion, can you please clarify if these findings signify one of the following conditions? Mild Protein-Calorie Malnutrition Moderate Protein-Calorie Malnutrition Severe Protein-Calorie Malnutrition Malnutrition following GI surgery Malnutrition, Unspecified Other condition, please specify Unable to determine Mild protein calorie malnutrition. MTDD
== END 2018-01-14 13:21 | disposition home health service (06) | DRG 640 ==
LOC: EC 15:12 → 4MS4W 19:21
PROVIDERS: ADMIT Internal Medicine; ATTEND Internal Medicine
DX: E87.1 Hypo-osmolality and hyponatremia (principal); J15.6 Pneumonia due to other Gram-negative bacteria; E44.1 Mild protein-calorie malnutrition; I10 Essential (primary) hypertension; J43.9 Emphysema, unspecified; K21.9 Gastro-esophageal reflux disease without esophagitis; K52.9 Noninfective gastroenteritis and colitis, unspecified; F17.210 Nicotine dependence, cigarettes, uncomplicated; E83.42 Hypomagnesemia; F10.20 Alcohol dependence, uncomplicated; Z79.899 Other long term (current) drug therapy; Z98.42 Cataract extraction status, left eye; Z98.41 Cataract extraction status, right eye; Z96.1 Presence of intraocular lens; Z82.49 Family history of ischemic heart disease and other diseases of the circulatory system; Z81.8 Family history of other mental and behavioral disorders; Z68.21 Body mass index [BMI] 21.0-21.9, adult
CPT/HCPCS: 36415; 71046; 71275; 74018; 74177; 80048; 80053; 81003; 82550; 82553; 83735; 83880; 84100; 84132; 84484; 85025; 85379; 85610; 85730; 87070; 87205; 87324; 93005; 93970; 94640; 94760; 96361; 96365; 96366; 96375; 99285

== ENCOUNTER → 2018-02-16 | Outpatient (CLI) | payer OTHER ==
--- NOTE | 2018-02-16 11:36 | XR ---
EXAMINATION TYPE: XR chest 2V DATE OF EXAM: 02/16/2018 COMPARISON: 01/09/2018 HISTORY: Hypertension. Follow-up for pneumonia TECHNIQUE: Frontal and lateral views of the chest are obtained. FINDINGS: Previously seen left basilar opacity has resolved in the interim. There is no focal air sp ravi opacity, pleural effusion, or pneumothorax seen. The cardiac silhouette size is within normal li mits. There is a old healed right mid clavicular fracture and minimal degenerative changes of the tho racic spine.. IMPRESSION: No acute cardiopulmonary process. Resolution the previously seen left basilar airspace d isease.
== END | disposition home or self-care (01) ==
LOC: RADXRMAIN 10:56
PROVIDERS: ATTEND Family Medicine
DX: J18.9 Pneumonia, unspecified organism (principal)
CPT/HCPCS: 71046

== ENCOUNTER → 2018-03-04 | Outpatient (CLI) | payer OTHER ==
[2018-03-04 11:32] LABS: INR 1.1 (<1.2); Prothrombin Time 10.3 sec (9.0-12.0)
[2018-03-04 11:42] LABS: Basophils % (A) 1 %; Eosinophils # (A) 0.1 k/uL (0-0.7); Eosinophils % (A) 2 %; HCT 40.1 % (39.0-53.0); HGB 13.3 gm/dL (13.0-17.5); Lymphocytes # (A) 2.3 k/uL (1.0-4.8); Lymphocytes % (A) 33 %; MCH 32.3 pg (25.0-35.0); MCHC 33.2 g/dL (31.0-37.0); MCV 97.3 fL (80.0-100.0); Mean Platelet Volume 6.3; Monocytes # (A) 0.4 k/uL (0-1.0); Monocytes % (A) 6 %; Neutrophils # (A) 3.9 k/uL (1.3-7.7); Neutrophils % (A) 57 %; RBC 4.12 m/uL (4.30-5.90); WBC 6.9 k/uL (3.8-10.6)
[2018-03-04 11:49] LABS: Platelet Count 452 k/uL (150-450)
--- NOTE | 2018-03-04 11:50 | XR ---
EXAMINATION TYPE: XR cervical spine comp DATE OF EXAM: 03/04/2018 COMPARISON: NONE HISTORY: Neck pain TECHNIQUE: Five-view cervical spine FINDINGS: Note is made of some calcification in the expected region of the distal common carotid luna patrick carotid bifurcation. Foraminal stenosis is present on the right at C4-5-7. Milder foraminal narrowing is present on the le ft at C4-5 C5-6 and C6-7. There is loss of disc height C3-4 posteriorly at C4-5 and diffusely C5-6 and C6-7. The prevertebral space is normal. Posterior spinal lamellar line is intact. IMPRESSION: 1. Foraminal narrowing due to facet hypertrophy. Consider MRI without contrast for additional evalua tion. 2. Degenerative disc changes discussed above
== END | disposition home or self-care (01) ==
LOC: LABWHC1 11:12
PROVIDERS: ATTEND Family Medicine
DX: M99.71 Connective tissue and disc stenosis of intervertebral foramina of cervical region (principal); M47.812 Spondylosis without myelopathy or radiculopathy, cervical region; M46.92 Unspecified inflammatory spondylopathy, cervical region; T14.8XXA Other injury of unspecified body region, initial encounter
CPT/HCPCS: 36415; 72050; 85025; 85610

== ENCOUNTER 2018-04-06 10:17 | Emergency (ER) | payer OTHER ==
[2018-04-06 10:21] VITALS: RESP 18
--- NOTE | 2018-04-06 10:51 | ED ---
General Adult HPI - General Chief complaint: Neuro Symptoms/Deficit Stated complaint: Numbness in face /arm Time Seen by Provider: 04/06/18 10:17 Source: patient, RN notes reviewed Mode of arrival: ambulatory Limitations: no limitations - History of Present Illness Initial comments: This is a 52-year-old male who presents emergency Department complaining of tingling in the left side of his face and left arm. Patient states the sensation seems to be worse with movement of his neck. Patient states started Friday night. Patient states that it is been constant since Friday. Patient states she was on vacation so he didn't want to go to the doctors or the emergency department at that time because he did not want to run his vacation. Patient denies any headache patient denies any weakness. Patient denies any actual numbness. Patient states he has full sensation on the side of his face arm except that there is a tingling sensation in addition to his normal sensation. Patient denies any visual disturbance patient denies any speech disturbance. Patient denies any chest pain difficulty breathing or shortness of breath. Patient denies any palpitations. Patient denies abdominal pain patient denies nausea vomiting diarrhea. Patient states he has a chronic neck problems for which she is scheduled to have an MRI of his neck syndrome. - Related Data Home Medications Medication Instructions Recorded Confirmed Cetirizine HCl [Zyrtec] 10 mg PO DAILY 01/08/18 01/08/18 Citalopram Hydrobromide 20 mg PO DAILY 01/08/18 01/08/18 [Citalopram HBr] Ergocalciferol [Vitamin D2 50,000 unit PO Q30D 01/08/18 01/08/18 (DRISDOL)] Ibuprofen [Motrin] 400 mg PO TID PRN 01/08/18 01/08/18 Latanoprost Ophth [Xalatan 0.005%] 1 drops RIGHT EYE HS 01/08/18 01/08/18 Losartan Potassium 50 mg PO DAILY 01/08/18 01/08/18 Melatonin 3 mg PO HS 01/08/18 01/08/18 Nicotine [Nicotrol] 1 puff INHALATION DIRECTED 01/08/18 01/08/18 Ranitidine HCl 150 mg PO BID 01/08/18 01/08/18 hydrOXYzine HCL 25 mg PO HS 01/08/18 01/08/18 Previous Rx's Medication Instructions Recorded Folic Acid 1 mg PO DAILY@1200 #30 tab 01/14/18 Levofloxacin [Levaquin] 500 mg PO Q24H #7 tab 01/14/18 Multivitamins, Thera [Multivitamin 1 each PO DAILY@1200 tab 01/14/18 (formulary)] Nicotine 21Mg/24Hr Patch [Habitrol] 1 patch TRANSDERM DAILY #30 patch 01/14/18 Thiamine [Vitamin B-1] 100 mg PO BID@1200,1700 #60 tab 01/14/18 cloNIDine HCL [Catapres] 0.1 mg PO BID #60 tab 01/14/18 Allergies Allergy/AdvReac Type Severity Reaction Status Date / Time No Known Allergies Allergy Verified 04/06/18 11:56 Review of Systems ROS Statement: Those systems with pertinent positive or pertinent negative responses have been documented in the HPI. ROS Other: All systems not noted in ROS Statement are negative. Past Medical History Past Medical History: GERD/Reflux, Hypertension Additional Past Medical History / Comment(s): cataracts History of Any Multi-Drug Resistant Organisms: None Reported Past Surgical History: Orthopedic Surgery Additional Past Surgical History / Comment(s): cataract removal, rotator cuff Past Psychological History: No Psychological Hx Reported Smoking Status: Current every day smoker Past Alcohol Use History: Daily Past Drug Use History: None Reported - Past Family History Mother Additional Family Medical History / Comment(s): Mother is alive with history of hypertension. Father Additional Family Medical History / Comment(s): Father has history of dementia. Daughter(s) Additional Family Medical History / Comment(s): Patient has one daughter with no major medical problems. General Exam - General Exam Comments Initial Comments: GENERAL: Patient is well-developed and well-nourished. Patient is nontoxic and well- hydrated and is in no acute distress. ENT: Neck is soft and supple. No significant lymphadenopathy is noted. Oropharynx is clear. Moist mucous membranes. Neck has full range of motion without eliciting any pain. EYES: The sclera were anicteric and conjunctiva were pink and moist. Extraocular movements were intact and pupils were equal round and reactive to light. Eyelids were unremarkable. PULMONARY: Unlabored respirations. Good breath sounds bilaterally. No audible rales rhonchi or wheezing was noted. CARDIOVASCULAR: There is a regular rate and rhythm without any murmurs gallops or rubs. ABDOMEN: Soft and nontender with normal bowel sounds. No palpable organomegaly was noted. There is no palpable pulsatile mass. SKIN: Skin is clear with no lesions or rashes and otherwise unremarkable. NEUROLOGIC: Patient is alert and oriented x3. Cranial nerves II through XII are grossly intact. Motor and sensory are also intact. Normal speech, volume and content. Symmetrical smile. MUSCULOSKELETAL: Normal extremities with adequate strength and full range of motion. No lower extremity swelling or edema. No calf tenderness. LYMPHATICS: No significant lymphadenopathy is noted PSYCHIATRIC: Normal psychiatric evaluation. Normal interpersonal interactions appears functionally intact in deals appropriately with others. No signs of depression. No signs of anxiety. Limitations: no limitations Course Vital Signs 04/06/18 04/06/18 10:17 11:36 Temperature 98.3 F Pulse Rate 103 H 85 Respiratory 18 18 Rate Blood Pressure 159/71 129/81 O2 Sat by Pulse 99 98 Oximetry Medical Decision Making - Medical Decision Making EKG shows normal sinus rhythm at 89 bpm [place] interval is 124 QRS is 86 QT interval 362 QTC is 440. EKG shows no ST segment elevation or depression or T wave abnormalities are noted CT of the brain showed no acute abnormality. Chest x-ray showed no acute abnormality. - Lab Data Result diagrams: 04/06/18 10:35 04/06/18 10:35 Lab Results 04/06/18 04/06/18 04/06/18 Range/Units 10:35 10:35 10:35 WBC 9.2 (3.8-10.6) k/uL RBC 4.77 (4.30-5.90) m/uL Hgb 15.2 (13.0-17.5) gm/dL Hct 45.7 (39.0-53.0) % MCV 95.7 (80.0-100.0) fL MCH 31.9 (25.0-35.0) pg MCHC 33.4 (31.0-37.0) g/dL RDW 14.3 (11.5-15.5) % Plt Count 289 (150-450) k/uL Neutrophils % 67 % Lymphocytes % 24 % Monocytes % 6 % Eosinophils % 1 % Basophils % 0 % Neutrophils # 6.2 (1.3-7.7) k/uL Lymphocytes # 2.2 (1.0-4.8) k/uL Monocytes # 0.6 (0-1.0) k/uL Eosinophils # 0.0 (0-0.7) k/uL Basophils # 0.0 (0-0.2) k/uL PT (9.0-12.0) sec INR (<1.2) APTT (22.0-30.0) sec Sodium 126 L (137-145) mmol/L Potassium 4.3 (3.5-5.1) mmol/L Chloride 86 L (98-107) mmol/L Carbon Dioxide 27 (22-30) mmol/L Anion Gap 13 mmol/L BUN 14 (9-20) mg/dL Creatinine 0.90 (0.66-1.25) mg/dL Est GFR (CKD-EPI)AfAm >90 (>60 ml/min/1.73 sqM) Est GFR (CKD-EPI)NonAf >90 (>60 ml/min/1.73 sqM) Glucose 110 H (74-99) mg/dL Calcium 10.3 H (8.4-10.2) mg/dL Total Bilirubin 1.0 (0.2-1.3) mg/dL AST 74 H (17-59) U/L ALT 46 (21-72) U/L Alkaline Phosphatase 117 (38-126) U/L Total Creatine Kinase 125 (55-170) U/L CK-MB (CK-2) 2.3 (0.0-2.4) ng/mL CK-MB (CK-2) Rel Index 1.8 Troponin I <0.012 (0.000-0.034) ng/mL Total Protein 9.0 H (6.3-8.2) g/dL Albumin 5.1 H (3.5-5.0) g/dL 04/06/18 Range/Units 10:35 WBC (3.8-10.6) k/uL RBC (4.30-5.90) m/uL Hgb (13.0-17.5) gm/dL Hct (39.0-53.0) % MCV (80.0-100.0) fL MCH (25.0-35.0) pg MCHC (31.0-37.0) g/dL RDW (11.5-15.5) % Plt Count (150-450) k/uL Neutrophils % % Lymphocytes % % Monocytes % % Eosinophils % % Basophils % % Neutrophils # (1.3-7.7) k/uL Lymphocytes # (1.0-4.8) k/uL Monocytes # (0-1.0) k/uL Eosinophils # (0-0.7) k/uL Basophils # (0-0.2) k/uL PT 10.5 (9.0-12.0) sec INR 1.1 (<1.2) APTT 25.3 (22.0-30.0) sec Sodium (137-145) mmol/L Potassium (3.5-5.1) mmol/L Chloride (98-107) mmol/L Carbon Dioxide (22-30) mmol/L Anion Gap mmol/L BUN (9-20) mg/dL Creatinine (0.66-1.25) mg/dL Est GFR (CKD-EPI)AfAm (>60 ml/min/1.73 sqM) Est GFR (CKD-EPI)NonAf (>60 ml/min/1.73 sqM) Glucose (74-99) mg/dL Calcium (8.4-10.2) mg/dL Total Bilirubin (0.2-1.3) mg/dL AST (17-59) U/L ALT (21-72) U/L Alkaline Phosphatase (38-126) U/L Total Creatine Kinase (55-170) U/L CK-MB (CK-2) (0.0-2.4) ng/mL CK-MB (CK-2) Rel Index Troponin I (0.000-0.034) ng/mL Total Protein (6.3-8.2) g/dL Albumin (3.5-5.0) g/dL Disposition Clinical Impression: Paresthesias, Hyponatremia Disposition: HOME SELF-CARE Condition: Good Instructions: Paresthesia (ED), Hyponatremia (ED) Is patient prescribed a controlled substance at d/c from ED?: No Referrals: Carlos Britton MD [Primary Care Provider] - 1-2 days Time of Disposition: 12:03
[2018-04-06 11:02] LABS: INR 1.1 (<1.2); Partial Thromboplastin Time 25.3 sec (22.0-30.0); Prothrombin Time 10.5 sec (9.0-12.0)
[2018-04-06 11:04] LABS: Basophils % (A) 0 %; Eosinophils % (A) 1 %; HCT 45.7 % (39.0-53.0); HGB 15.2 gm/dL (13.0-17.5); Lymphocytes # (A) 2.2 k/uL (1.0-4.8); Lymphocytes % (A) 24 %; MCH 31.9 pg (25.0-35.0); MCHC 33.4 g/dL (31.0-37.0); MCV 95.7 fL (80.0-100.0); Mean Platelet Volume 6.5; Monocytes # (A) 0.6 k/uL (0-1.0); Monocytes % (A) 6 %; Neutrophils # (A) 6.2 k/uL (1.3-7.7); Neutrophils % (A) 67 %; Platelet Count 289 k/uL (150-450); RBC 4.77 m/uL (4.30-5.90); RDW 14.3 % (11.5-15.5); WBC 9.2 k/uL (3.8-10.6)
[2018-04-06 11:10] LABS: ALT 46 U/L (21-72); AST 74 U/L (17-59); Albumin 5.1 g/dL (3.5-5.0); Alkaline Phosphatase 117 U/L (38-126); Anion Gap 13 mmol/L; Blood Urea Nitrogen 14 mg/dL (9-20); Calcium 10.3 mg/dL (8.4-10.2); Carbon Dioxide 27 mmol/L (22-30); Chloride 86 mmol/L (98-107); Glucose 110 mg/dL (74-99); Potassium 4.3 mmol/L (3.5-5.1); Sodium 126 mmol/L (137-145)
[2018-04-06 11:15] LABS: Creatine Kinase 125 U/L (55-170)
[2018-04-06 11:27] LABS: Creatine Kinase MB 2.3 ng/mL (0.0-2.4); Troponin I <0.012 ng/mL (0.000-0.034)
--- NOTE | 2018-04-06 11:31 | CT ---
EXAMINATION TYPE: CT brain wo con DATE OF EXAM: 04/06/2018 COMPARISON: 12/03/2012 INDICATION: Neuro deficits DLP: 945.50 mGycm, Automated exposure control for dose reduction was used. CONTRAST: None CT of the brain is performed utilizing 3 mm thick sections through the posterior fossa and 3 mm thick sections through the remaining calvarium. Study is performed within 24 hours of arrival to the hosp ital. No abnormal hyperdensity is present to suggest an acute intracranial hemorrhage. No mass lesion is evident. No acute infarcts are evident. Some mild periventricular white matter ischemic type changes are likel y present. This is an interval development although likely chronic.. Ventricles and sulci are becoming mildly prominent for the patient age. Paranasal sinuses and mastoid air cells within the [id number] are clear. IMPRESSIONS: 1. Chronic appearing mild periventricular white matter ischemic type changes with some developing a trophy.
--- NOTE | 2018-04-06 11:33 | XR ---
EXAMINATION TYPE: XR chest 2V DATE OF EXAM: 04/06/2018 COMPARISON: 02/16/2018 an 01/09/2018 HISTORY: 52-year-old male confusion, altered mental status TECHNIQUE: AP and lateral views FINDINGS: Heart normal size. Aorta and pulmonary vasculature within normal limits. Old healed right midclavicul ar shaft fracture deformity. Hyperinflation with flattening of the hemidiaphragms. No consolidation o r pleural effusion. IMPRESSION: Suspect underlying COPD. No acute cardiopulmonary process.
[2018-04-06 12:22] VITALS: BP 118/78; PULSE 82; TEMP 98.4
== END 2018-04-06 12:22 | disposition home or self-care (01) ==
LOC: EC 10:17
DX: E87.1 Hypo-osmolality and hyponatremia (principal); R20.2 Paresthesia of skin; I10 Essential (primary) hypertension; K21.9 Gastro-esophageal reflux disease without esophagitis; F17.200 Nicotine dependence, unspecified, uncomplicated; Z79.899 Other long term (current) drug therapy
CPT/HCPCS: 36415; 70450; 71046; 80053; 82550; 82553; 84484; 85025; 85610; 85730; 93005; 99284

== ENCOUNTER → 2019-06-02 | Outpatient (CLI) | payer OTHER ==
[2019-06-02 14:32] LABS: African American GFR (CKD) >90 (>60 ml/min/1.73 sqM); Blood Urea Nitrogen 4 mg/dL (9-20)
--- NOTE | 2019-06-02 16:47 | CT ---
EXAMINATION TYPE: CT iac wo con DATE OF EXAM: 06/02/2019 COMPARISON: CT brain April 06, 2018. MRI brain December 04, 2012 HISTORY: Left ear pain and hearing loss. CT DLP: 142.7 mGycm. Automated Exposure Control for Dose Reduction was Utilized. TECHNIQUE: CT scan of internal auditory canal is performed without contrast, thin cut axial images ar e obtained, coronal reformatted images are also reviewed. FINDINGS: The external auditory canals are patent bilaterally. Some patchy soft tissue density returned case inspector ior deep aspect axial image 38 is felt to reflect small degree of cerumen on the right side . Mastoid air cells show no evidence of abnormal opacification bilaterally. The middle ear ossicles are symme tric and unremarkable. There is no evidence of suspicious surrounding soft tissue density to suggest cholesteatoma. The scutum is preserved bilaterally. The cochlea and the semicircular canals are sy mmetric and unremarkable. Vestibular aqueduct and internal carotid canal appear unremarkable. Temporomandibular joints are maintained bilaterally. Due to moderate mucosal thickening and patchy op acification of ethmoid sinuses bilaterally. There is moderate mucosal thickening and patchy fluid sig nal in the bilateral mastoid air cells. Visualized portion brain parenchyma is felt within normal card its. IMPRESSION: No significant abnormality seen to account for patient's symptoms. Incidental acute on c hronic bilateral ethmoid and maxillary sinus disease.
--- NOTE | 2019-06-02 16:55 | CT ---
EXAMINATION TYPE: No suspicious greater than 1 cm neck adenopathy. DATE OF EXAM: 06/02/2019 HISTORY: Left ear pain and hearing loss. COMPARISON: NONE CT DLP: 293.5 mGycm. Automated Exposure Control for Dose Reduction was Utilized. TECHNIQUE: CT scan of the neck is performed with IV Contrast, patient injected with 100ml mL of Isov ue 300, axial images are obtained, coronal and sagittal reformatted images are reviewed. FINDINGS: Airway: Early moderate underlying emphysematous change of the visualized upper lungs. Parotid/submandibular glands: No gross abnormality seen. Carotid/Vascular Structures: [id number] calcified plaque bilateral carotid bulb level extending into proximal carotid arteries without significant stenosis. Osseous Structures: Moderate multilevel spurring and disc space narrowing C3-C4 through the C6-C7 lev els. Other: Moderate to severe mucosal thickening in the bilateral maxillary sinuses. Patchy fluid is thou ght present. Mild to moderate mucosal thickening and patchy opacification ethmoid sinuses bilaterally most prominent anteriorly. IMPRESSION: Acute on chronic paranasal sinus disease. Background moderate emphysematous change. No lemons spicious mass or adenopathy in the neck.
== END | disposition home or self-care (01) ==
LOC: RADCTMAIN 13:38
PROVIDERS: ATTEND Otolaryngology Otology & Neurotology
DX: H92.02 Otalgia, left ear (principal); J32.4 Chronic pansinusitis; J43.9 Emphysema, unspecified; F17.200 Nicotine dependence, unspecified, uncomplicated; Z01.812 Encounter for preprocedural laboratory examination
CPT/HCPCS: 82565; 84520; 70491; 70480; 36415; Q9967